=== PATIENT | male | born 1935 | race Caucasian/White ===

== ENCOUNTER 2019-06-11 09:39 | Inpatient (IN) | payer OTHER ==
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
--- NOTE | 2019-06-11 09:56 | PDOC ---
Attending Attestation - Resident Resident Name: Harsh Truong - ED Attending Attestation I have performed the following: I have examined & evaluated the patient, The case was reviewed & discussed with the resident, I agree w/resident's findings & plan, Exceptions are as noted - HPI HPI: 06/11/19 10:31 Mr Mccabe is an 84 yo M presenting to the ER with a complaint of feeling weak Pt reports that last night he had abdominal pain at approximately 1am He was unable to sleep and therefore went downstairs and walked around Symptoms lasted 2 hours and resolved No prior like this He did feel nauseous this morning and took Radha Cammal No longer nauseous Rectal temp 102.7 - Physicial Exam PE: 06/11/19 09:56 GENERAL: The patient is in no acute distress, pleasant, A&O x 3. ENT: Ears normal, nares patent, oropharynx clear without exudates. Moist mucous membranes. NECK: Normal range of motion, supple, no nuchal rigidity LUNGS: Breath sounds equal, clear to auscultation bilaterally. No wheezes, and no crackles. HEART:Regular rate and rhythm, normal S1 and S2 without murmur, rub or gallop. ABDOMEN: Soft, nontender, protruberant abdomen EXTREMITIES: Normal range of motion, no edema. NEUROLOGICAL: Cranial nerves II through XII grossly intact. Normal speech. No focal neurological deficits. SKIN: Warm, Dry, normal turgor, no rashes or lesions noted. 06/11/19 10:51 - Critical Care Time Total Critical Care Time: 60 Critical Care Statement: The care of this patient involved high complexity decision making to prevent further life threatening deterioration of the patient 's condition and/or to evaluate & treat vital organ system(s) failure or risk of failure. - Medical Decision Making 06/11/19 10:52 84 yo M presenting with weakness found to have a temp of 102.7 Unclear the source of his fever Will do: Labs EKG CT IVF Tylenol Re Assess Admit 06/11/19 10:58 CXR - No acute pathology seen 06/11/19 11:05 Laboratory Tests 06/11/19 06/11/19 06/11/19 10:30 10:30 10:30 WBC 7.3 Hgb 14.3 Hct 40.9 D Plt Count 152 Neutrophils % 84.9 H D PTT (Actin FS) 28.8 VBG pH 7.40 POC VBG pCO2 45.8 POC VBG pO2 38.3 VBG HCO3 27.4 06/11/19 11:40 EKG - SR rate of 85 bpm, axis nml, no st elevation or depression, limb lead reversal 06/11/19 11:47 Laboratory Tests 06/11/19 06/11/19 06/11/19 10:30 10:30 11:20 Sodium 140 Potassium 4.4 Chloride 104 Carbon Dioxide 30 BUN 16.7 Creatinine 1.1 Random Glucose 109 H Total Bilirubin 1.5 H AST 72 H ALT 78 H Alkaline Phosphatase 122 H Creatine Kinase 69 Troponin I Cancelled Urine Blood 1+ H Urine Nitrite Negative Urine Bilirubin Negative Ur Leukocyte Esterase Negative Urine WBC (Auto) 0 Urine RBC (Auto) 17 Slight transaminitis UA negative 06/11/19 13:50 CT demonstrates - overdistended gallbladder No acute cholecystitis Dilated CBD with small stones Mesenteric stranding diverticulosis no diverticulitis Will order RUQ U/S Will Admit Given Vancomycin and Zosyn Clinical Impression: choledocholithiasis, initial presentation
[2019-06-11] MEDS ORDERED: SODIUM CHLORIDE 1,000 ML IV STA (09:59)
[2019-06-11] MEDS ORDERED: ACETAMINOPHEN 1000 MG/100 ML VIAL (NON FORMULARY) IVPB ONE (09:59)
[2019-06-11] MEDS ORDERED: ONDANSETRON 4 MG/2 ML VIAL ONE (10:00)
[2019-06-11 10:46] LABS: VENOUS PC02 45.8 mmHg (41-51); VENOUS PH 7.4 (7.31-7.41); VENOUS PO2 38.3 mmHg (30-40)
[2019-06-11] MEDS ORDERED: PIPERACILLIN/TAZOB 4.5 GM 4.5 GM in DEXTROSE 5%-WATER 100 ML IVPB ONE (10:46)
[2019-06-11] MEDS ORDERED: VANCOMYCIN 1 GM in D5W (PRE-DOCKED) 1,000 MG/250 ML IVPB ONE (10:46)
[2019-06-11] MEDS ORDERED: ACETAMINOPHEN INJECTION 100 ML IVPB ONE ×2 (10:54→18:49)
[2019-06-11 10:57] LABS: BASO % 0.5 % (0-2.0); EOS % 0.2 % (0-4.5); HEMATOCRIT 40.9 % (35.4-49); HEMOGLOBIN 14.3 GM/dL (11.7-16.9); LYMPH % 7.4 % (8-40); MCH 33.7 pg (25.7-33.7); MEAN CELL VOLUME 96.3 fl (80-96); MEAN PLT VOLUME 7.8 fl (7.5-11.1); NEUT % 84.9 % (42.8-82.8); PLATELET COUNT 152 K/MM3 (134-434); RBC 4.25 M/mm3 (4.00-5.60); RDW 13.1 % (11.9-15.9); WHITE BLOOD COUNT 7.3 K/mm3 (4.0-10.0)
[2019-06-11 11:11] LABS: INR 1.03 (0.83-1.09); PROTHROMBIN TIME (PATIENT) 12.1 SEC (9.7-13.0)
[2019-06-11 11:13] LABS: ALBUMIN 3.8 g/dl (3.4-5.0); ANION GAP 6 MMOL/L (8-16); BLOOD UREA NITROGEN 16.7 mg/dL (7-18); CALCIUM 9.4 mg/dL (8.5-10.1); CHLORIDE 104 mmol/L (98-107); CO2 30 mmol/L (21-32); GLUCOSE,RANDOM 109 mg/dL (74-106); POTASSIUM 4.4 mmol/L (3.5-5.1); SODIUM 140 mmol/L (136-145)
[2019-06-11 11:14] LABS: ALK PHOS 122 U/L (45-117); CREATININE 1.1 mg/dL (0.55-1.3); SGOT/AST 72 U/L (15-37); SGPT/ALT 78 U/L (13-61); TOT PROT 7.5 g/dl (6.4-8.2)
[2019-06-11 11:16] LABS: BILIRUBIN,TOTAL 1.5 mg/dL (0.2-1)
[2019-06-11] MEDS ORDERED: PIPERACILLIN/TAZOB 4.5 GM 4.5 GM/100 ML BAG IVPB ONE (11:23)
[2019-06-11] MEDS ORDERED: VANCOMYCIN 1 GRAM (PRE-DOCKED) 1,000 MG/250 ML BAG IVPB ONE (11:24)
[2019-06-11 11:45] LABS: EPI CELLS 0.4 /HPF (0-5/HPF); HYALINE CASTS 0 /lpf (0-8); PH,URINE 7.5 (5.0-8.0); URINE APPEARANCE CLEAR; URINE BACTERIA 1.5 /hpf (NEGATIVE); URINE BILIRUBIN NEGATIVE (NEGATIVE); URINE COLOR YELLOW; URINE GLUCOSE (UA) NEGATIVE (NEGATIVE); URINE KETONE NEGATIVE (NEGATIVE); URINE LEUK ESTERASE NEGATIVE (NEGATIVE); URINE NITRITE NEGATIVE (NEGATIVE); URINE PROTEIN NEGATIVE (NEGATIVE); URINE RBC 17 /hpf (0-4); URINE WBC 0 /hpf (0-5)
[2019-06-11 12:05] LABS: LIPASE 198 U/L (73-393)
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
--- NOTE | 2019-06-11 17:41 | PN ---
Teaching Attending Note Name of Resident: Ramon Aceves ATTENDING PHYSICIAN STATEMENT I saw and evaluated the patient. I reviewed the resident's note and discussed the case with the resident. I agree with the resident's findings and plan as documented with exceptions below. SUBJECTIVE: 84 yom with PMHx of CAD s/p CABG, ?chronic stable angina with reportedly non concerning stress test 3 months ago, HTN, HLD, hypothyroidism, chronic low back pain comes with sudden onset of RUQ abdominal pain associated with rigors, nausea, prompting him to come to Ed. His pain resolved enroute to ED. no similar prior symptoms. reported rectal temp 102 in ED. Currently patient denies any complaints. OBJECTIVE: Vital Signs Period Temp Pulse Resp BP Sys/Quinn Pulse Ox Last 24 Hr 99.0 F-99.1 F 80-99 18-19 118-154/56-65 99-100 Intake & Output 06/08/19 06/09/19 06/10/19 06/11/19 23:59 23:59 23:59 23:59 Weight 185 lb GENERAL: Awake, alert, and fully oriented, in no acute distress. HEAD: Normal with no signs of trauma. EYES: Pupils equal, round and reactive to light, extraocular movements intact, sclera anicteric, conjunctiva clear. No lid lag. EARS, NOSE, THROAT: Ears normal, nares patent, oropharynx clear without exudates. Moist mucous membranes. NECK: Normal range of motion, supple, no JVD LUNGS: Breath sounds equal, clear to auscultation bilaterally. No wheezes, and no crackles. No accessory muscle use. HEART: Regular rate and rhythm, normal S1 and S2. ABDOMEN: Soft, obese, NT throughout, neg Goodman's sign, no voluntary or involuntary guarding or rigidity, pos bowel sounds MUSCULOSKELETAL: Normal range of motion at all joints. No bony deformities or tenderness. No CVA tenderness. UPPER EXTREMITIES: 2+ pulses, warm, well-perfused. No cyanosis. No clubbing. No peripheral edema. LOWER EXTREMITIES: 2+ pulses, warm, well-perfused. No calf tenderness. No peripheral edema. NEUROLOGICAL: AAOx3, facial, symmetry, moves shayy xtremities, Cranial nerves II -XII intact. Normal speech. gait not observed. PSYCHIATRIC: Cooperative. Good eye contact. Appropriate mood and affect. SKIN: Warm, dry, normal turgor, no rashes or lesions noted, normal capillary refill. Home Medications Medication Instructions Recorded Atorvastatin Ca [Lipitor] 80 mg PO HS 04/24/14 Ezetimibe [Zetia] 10 mg PO DAILY 04/24/14 Metoprolol Succinate [Toprol XL -] 25 mg PO DAILY 04/24/14 Aspirin [Ecotrin] 81 mg PO DAILY 07/03/16 Levothyroxine [Synthroid -] 88 mcg PO DAILY 07/03/16 Active Medications Dextrose/Sodium Chloride (D5-Ns -) 1,000 mls @ 75 mls/hr IV ASDIR MARTINA Sodium Chloride (Normal Saline -) 500 mls @ 500 mls/hr IV ASDIR STA Stop: 06/11/19 18:46 Metoprolol Succinate (Toprol Xl -) 25 mg PO DAILY MARTINA Morphine Sulfate (Morphine Injection -) 2 mg IVPUSH Q4H PRN PRN Reason: PAIN LEVEL 1-5 Laboratory Results - last 24 hr 06/11/19 06/11/19 06/11/19 10:30 10:30 10:30 WBC 7.3 RBC 4.25 Hgb 14.3 Hct 40.9 D MCV 96.3 H MCH 33.7 MCHC 35.0 RDW 13.1 Plt Count 152 MPV 7.8 D Absolute Neuts (auto) 6.2 Neutrophils % 84.9 H D Lymphocytes % 7.4 L D Monocytes % 7.0 Eosinophils % 0.2 D Basophils % 0.5 Nucleated RBC % 0 PT with INR INR PTT (Actin FS) 28.8 VBG pH POC VBG pCO2 POC VBG pO2 VBG HCO3 VBG O2 Sat (Rob) VBG Base Excess Sodium Potassium Chloride Carbon Dioxide Anion Gap BUN Creatinine Est GFR (CKD-EPI)AfAm Est GFR (CKD-EPI)NonAf Random Glucose Lactic Acid Calcium Total Bilirubin AST ALT Alkaline Phosphatase Creatine Kinase Troponin I Cancelled Total Protein Albumin Lipase Urine Color Urine Appearance Urine pH Ur Specific [place] Urine Protein Urine Glucose (UA) Urine Ketones Urine Blood Urine Nitrite Urine Bilirubin Urine Urobilinogen Ur Leukocyte Esterase Urine WBC (Auto) Urine RBC (Auto) Urine Casts (Auto) U Epithel Cells (Auto) Urine Bacteria (Auto) 06/11/19 06/11/19 06/11/19 10:30 10:30 10:30 WBC RBC Hgb Hct MCV MCH MCHC RDW Plt Count MPV Absolute Neuts (auto) Neutrophils % Lymphocytes % Monocytes % Eosinophils % Basophils % Nucleated RBC % PT with INR 12.10 INR 1.03 PTT (Actin FS) VBG pH POC VBG pCO2 POC VBG pO2 VBG HCO3 VBG O2 Sat (Rob) VBG Base Excess Sodium 140 Potassium 4.4 Chloride 104 Carbon Dioxide 30 Anion Gap 6 L BUN 16.7 Creatinine 1.1 Est GFR (CKD-EPI)AfAm 71.07 Est GFR (CKD-EPI)NonAf 61.32 Random Glucose 109 H Lactic Acid 1.4 Calcium 9.4 Total Bilirubin 1.5 H AST 72 H ALT 78 H Alkaline Phosphatase 122 H Creatine Kinase 69 Troponin I < 0.02 Total Protein 7.5 Albumin 3.8 Lipase 198 Urine Color Urine Appearance Urine pH Ur Specific [place] Urine Protein Urine Glucose (UA) Urine Ketones Urine Blood Urine Nitrite Urine Bilirubin Urine Urobilinogen Ur Leukocyte Esterase Urine WBC (Auto) Urine RBC (Auto) Urine Casts (Auto) U Epithel Cells (Auto) Urine Bacteria (Auto) 06/11/19 06/11/19 10:30 11:20 WBC RBC Hgb Hct MCV MCH MCHC RDW Plt Count MPV Absolute Neuts (auto) Neutrophils % Lymphocytes % Monocytes % Eosinophils % Basophils % Nucleated RBC % PT with INR INR PTT (Actin FS) VBG pH 7.40 POC VBG pCO2 45.8 POC VBG pO2 38.3 VBG HCO3 27.4 VBG O2 Sat (Rob) 67.3 L VBG Base Excess 2.4 H Sodium Potassium Chloride Carbon Dioxide Anion Gap BUN Creatinine Est GFR (CKD-EPI)AfAm Est GFR (CKD-EPI)NonAf Random Glucose Lactic Acid Calcium Total Bilirubin AST ALT Alkaline Phosphatase Creatine Kinase Troponin I Total Protein Albumin Lipase Urine Color Yellow Urine Appearance Clear Urine pH 7.5 D Ur Specific [place] 1.014 Urine Protein Negative Urine Glucose (UA) Negative Urine Ketones Negative Urine Blood 1+ H Urine Nitrite Negative Urine Bilirubin Negative Urine Urobilinogen 1.0 Ur Leukocyte Esterase Negative Urine WBC (Auto) 0 Urine RBC (Auto) 17 Urine Casts (Auto) 0 U Epithel Cells (Auto) 0.4 Urine Bacteria (Auto) 1.[address] A/P results reviewed EKG: NSR, no acute ST-T changes ASSESSMENT AND PLAN: 84 yom with PMHx of CAD s/p CABG, ?chronic stable angina with reportedly non concerning stress test 3 months ago, HTN, HLD, hypothyroidism, chronic low back pain admitted with acute cholangitis/choledocholithiasis/cholelithiasis. -Acute cholangitis with early sepsis -Choledocholithasis with obstruction -Cholelithiasis -Abnormal LFts from above -CAD s/p CABG/?chronic stable angina -HTN -HLD -Hypothyroidism -Chronic low back pain Plan: Zosyn/blood cultures. NPO, IVF, pain control. GI consulted, case discussed with Dr. Heath in ED, MRCP, anticipate ERCP. Close hemodynamic monitoring. hold ASA. No heparin for now. Hold statin. Metoprolol as hemodynamics tolerate. Continue ranexa/levothyroxine DVTPPX SCDs dispo pending clinical improvement. Plan discussed with patient and at bedside in detail, all questions answered. Total admit time spent 65 min.
[2019-06-11] MEDS ORDERED: SODIUM CHLORIDE 500 ML IV STA (17:47)
[2019-06-11] MEDS ORDERED: DEXTROSE 5%-LACTATED RINGERS 1,000 ML IV SCH (18:00)
[2019-06-11] MEDS ORDERED: DEXTROSE 5%-NORMAL SALINE 1,000 ML IV SCH (18:00)
[2019-06-11] MEDS ORDERED: PIPERACILLIN/TAZOB 3.375 GM 3.375 GM/50 ML BAG IVPB ONE ×2 (18:50→20:04)
[2019-06-11] MEDS: PIPERACILLIN/TAZOB 3.375 GM 3.375 GM in DEXTROSE 5%-WATER - 50 ML IVPB SCH (20:00)
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
[2019-06-11] MEDS: ACETAMINOPHEN 1000 MG/100 ML VIAL (NON FORMULARY) IVPB PRN (21:39)
[2019-06-11] MEDS: RANOLAZINE E.R. 500 MG TABLET (FP) PO SCH (23:58)
[2019-06-12] MEDS ORDERED: PIPERACILLIN/TAZOBACTAM 3.375 GM VIAL IVPB ONE ×2 (01:59→08:25)
[2019-06-12] MEDS ORDERED: DEXTROSE 5%-WATER - 50 ML IVPB ONE ×2 (01:59→08:25)
[2019-06-12] MEDS: PIPERACILLIN/TAZOB 3.375 GM 3.375 GM in DEXTROSE 5%-WATER - 50 ML IVPB SCH ×2 (02:13→10:01)
[2019-06-12] MEDS: LEVOTHYROXINE NA 88 MCG TABLET (FP) PO SCH (07:13)
--- NOTE | 2019-06-12 07:23 | PN ---
Physical Exam: SUBJECTIVE: Patient seen and examined no acute events over night , abdominal pain improved pt refused ERCP initially and his PPC was approhed by attending Dr Lyons who help convince pt about risk of not having the ERCP OBJECTIVE: Vital Signs Period Temp Pulse Resp BP Sys/Quinn Pulse Ox Last 24 Hr 98.1 F-102.5 F 69-102 18-20 108-160/56-74 98-100 GENERAL: Awake, alert, and fully oriented, in no acute distress. HEAD: Normal with no signs of trauma. LUNGS: Breath sounds equal, clear to auscultation bilaterally. No wheezes, and no crackles. No accessory muscle use. HEART: Regular rate and rhythm, normal S1 and S2 without murmur, rub or gallop. ABDOMEN: Soft, nontender, not distended, normoactive bowel sounds, no guarding, Goodman negative UPPER EXTREMITIES: 2+ pulses, warm, well-perfused. No cyanosis. No clubbing. No peripheral edema. LOWER EXTREMITIES: 2+ pulses, warm, well-perfused. No calf tenderness. No peripheral edema. surgery scar on right knee and left calf NEUROLOGICAL: no focal deficit Normal speech. gait not observed . PSYCHIATRIC: Cooperative. Good eye contact. Appropriate mood and affect. Laboratory Results - last 24 hr 06/11/19 06/11/19 06/11/19 10:30 10:30 10:30 WBC 7.3 RBC 4.25 Hgb 14.3 Hct 40.9 D MCV 96.3 H MCH 33.7 MCHC 35.0 RDW 13.1 Plt Count 152 MPV 7.8 D Absolute Neuts (auto) 6.2 Neutrophils % 84.9 H D Lymphocytes % 7.4 L D Monocytes % 7.0 Eosinophils % 0.2 D Basophils % 0.5 Nucleated RBC % 0 PT with INR INR PTT (Actin FS) 28.8 VBG pH POC VBG pCO2 POC VBG pO2 VBG HCO3 VBG O2 Sat (Rob) VBG Base Excess Sodium Potassium Chloride Carbon Dioxide Anion Gap BUN Creatinine Est GFR (CKD-EPI)AfAm Est GFR (CKD-EPI)NonAf Random Glucose Lactic Acid Calcium Total Bilirubin AST ALT Alkaline Phosphatase Creatine Kinase Troponin I Cancelled Total Protein Albumin Lipase Urine Color Urine Appearance Urine pH Ur Specific [place] Urine Protein Urine Glucose (UA) Urine Ketones Urine Blood Urine Nitrite Urine Bilirubin Urine Urobilinogen Ur Leukocyte Esterase Urine WBC (Auto) Urine RBC (Auto) Urine Casts (Auto) U Epithel Cells (Auto) Urine Bacteria (Auto) 06/11/19 06/11/19 06/11/19 10:30 10:30 10:30 WBC RBC Hgb Hct MCV MCH MCHC RDW Plt Count MPV Absolute Neuts (auto) Neutrophils % Lymphocytes % Monocytes % Eosinophils % Basophils % Nucleated RBC % PT with INR 12.10 INR 1.03 PTT (Actin FS) VBG pH POC VBG pCO2 POC VBG pO2 VBG HCO3 VBG O2 Sat (Rob) VBG Base Excess Sodium 140 Potassium 4.4 Chloride 104 Carbon Dioxide 30 Anion Gap 6 L BUN 16.7 Creatinine 1.1 Est GFR (CKD-EPI)AfAm 71.07 Est GFR (CKD-EPI)NonAf 61.32 Random Glucose 109 H Lactic Acid 1.4 Calcium 9.4 Total Bilirubin 1.5 H AST 72 H ALT 78 H Alkaline Phosphatase 122 H Creatine Kinase 69 Troponin I < 0.02 Total Protein 7.5 Albumin 3.8 Lipase 198 Urine Color Urine Appearance Urine pH Ur Specific [place] Urine Protein Urine Glucose (UA) Urine Ketones Urine Blood Urine Nitrite Urine Bilirubin Urine Urobilinogen Ur Leukocyte Esterase Urine WBC (Auto) Urine RBC (Auto) Urine Casts (Auto) U Epithel Cells (Auto) Urine Bacteria (Auto) 06/11/19 06/11/19 10:30 11:20 WBC RBC Hgb Hct MCV MCH MCHC RDW Plt Count MPV Absolute Neuts (auto) Neutrophils % Lymphocytes % Monocytes % Eosinophils % Basophils % Nucleated RBC % PT with INR INR PTT (Actin FS) VBG pH 7.40 POC VBG pCO2 45.8 POC VBG pO2 38.3 VBG HCO3 27.4 VBG O2 Sat (Rob) 67.3 L VBG Base Excess 2.4 H Sodium Potassium Chloride Carbon Dioxide Anion Gap BUN Creatinine Est GFR (CKD-EPI)AfAm Est GFR (CKD-EPI)NonAf Random Glucose Lactic Acid Calcium Total Bilirubin AST ALT Alkaline Phosphatase Creatine Kinase Troponin I Total Protein Albumin Lipase Urine Color Yellow Urine Appearance Clear Urine pH 7.5 D Ur Specific [place] 1.014 Urine Protein Negative Urine Glucose (UA) Negative Urine Ketones Negative Urine Blood 1+ H Urine Nitrite Negative Urine Bilirubin Negative Urine Urobilinogen 1.0 Ur Leukocyte Esterase Negative Urine WBC (Auto) 0 Urine RBC (Auto) 17 Urine Casts (Auto) 0 U Epithel Cells (Auto) 0.4 Urine Bacteria (Auto) 1.5 Active Medications Generic Name Dose Route Start Last Admin Trade Name Freq PRN Reason Stop Dose Admin Acetaminophen 1,000 mg 06/11/19 18:15 06/11/19 21:39 Ofirmev Injection - IVPB 1,000 mg Q6H PRN Administration FEVER Piperacillin Sod/Tazobactam 50 mls @ 100 mls/hr 06/11/19 18:00 Sod 3.375 gm/ Dextrose IVPB Q8H-IV MARTINA Protocol Dextrose/Lactated Ringer's 1,000 mls @ 83 mls/hr 06/11/19 18:00 06/11/19 20: 00 D5-Lr - IV 83 mls/hr ASDIR MARTINA Administration Piperacillin Sod/Tazobactam 50 mls @ 100 mls/hr 06/11/19 18:15 06/12/19 02:13 Sod 3.375 gm/ Dextrose IVPB 06/12/19 10:29 100 mls/hr Q8H-IV MARTINA Administration Levothyroxine Sodium 88 mcg 06/12/19 07:00 06/12/19 07:13 Synthroid - PO 88 mcg AM MARTINA Administration Metoprolol Succinate 25 mg 06/12/19 10:00 Toprol Xl - PO DAILY MARTINA Morphine Sulfate 2 mg 06/11/19 17:47 Morphine Sulfate IVPUSH Q4H PRN PAIN LEVEL 1-5 Ranolazine 500 mg 06/11/19 22:00 06/11/19 23:58 Ranexa - PO 500 mg BID MARTINA Administration CBC, BMP 06/12/19 07:50 06/12/19 07:50 ASSESSMENT/PLAN: 84 year old pleasant male with pmhx of HTN , HLD, Hypothyroidism , CAD S.P CABG , [facility] one day history of fever 102 , chills and abdominal pain was found to have CBD dilation and CBD stones admitted to M/S for further evaluation. # Biliary sepsis # Gram negative bacteremia # obstructive Choledocholilthisis # Cholelithisis without acute cholecystitits # acute ascending cholangitis as pt presented with fever 102 ,and chills , might deteriorate into sepsis * S.P ERCP with stone removal and stent placement , * clear liquids per GI * IV fluids RL by GI * Pain control Morphine * trend lab Bili direct and total , AST, ALT , INR , Type and screen , Amylase and lipase * ID cosulted cont Zosyn day 2 * cont on Zosyn , give n Vanc/zosyn in ED one dose * consult surgery for cholecystectomy after ERCP is done * zofran for nasuea , EKG NSR with No QTC prolongation # CAD S.P CABG Echo and cardiology consulted for pre op risk stratification and clearance # HTN # HLD # Hypothyroidism * hold ASA and statin , resume Metoprolol succ 25 daily, renexa and Synthroid 88 daily * #FEN * D5/NS swithc to RL by GI * Monitor lytes * NPO except meds #Proph scds , no chemoprophylaxis for now # dispo : M/S # code status : Full code Visit type - Emergency Visit Emergency Visit: Yes ED Registration Date: 06/11/19 Care time: The patient presented to the Emergency Department on the above date and was hospitalized for further evaluation of their emergent condition. - New Patient This patient is new to me today: No - Critical Care Critical Care patient: No ATTENDING PHYSICIAN STATEMENT I saw and evaluated the patient. I reviewed the resident's note and discussed the case with the resident. I agree with the resident's findings and plan as documented. SUBJECTIVE: OBJECTIVE: ASSESSMENT AND PLAN:
[2019-06-12 08:19] LABS: BASO % 0.5 % (0-2.0); HEMATOCRIT 34.1 % (35.4-49); HEMOGLOBIN 11.9 GM/dL (11.7-16.9); LYMPH % 16.4 % (8-40); MCH 33.7 pg (25.7-33.7); MCHC 34.9 g/dl (32.0-35.9); MEAN CELL VOLUME 96.3 fl (80-96); MEAN PLT VOLUME 7.7 fl (7.5-11.1); MONO % 10.1 % (3.8-10.2); PLATELET COUNT 128 K/MM3 (134-434); RBC 3.54 M/mm3 (4.00-5.60); RDW 12.7 % (11.9-15.9); WHITE BLOOD COUNT 6.3 K/mm3 (4.0-10.0)
[2019-06-12 08:46] LABS: BILIRUBIN,DIRECT 0.5 mg/dL (0.0-0.2)
[2019-06-12 08:50] LABS: INR 1.14 (0.83-1.09); PROTHROMBIN TIME (PATIENT) 13.5 SEC (9.7-13.0)
[2019-06-12 08:53] LABS: ACTIVATED PTT 28.9 SECONDS (25.2-36.5)
[2019-06-12 08:56] LABS: BILIRUBIN,TOTAL 1.5 mg/dL (0.2-1); CALCIUM 8.3 mg/dL (8.5-10.1); CREATININE 1.2 mg/dL (0.55-1.3); MAGNESIUM 1.9 mg/dL (1.8-2.4); PHOSPHOROUS 3.1 mg/dL (2.5-4.9)
--- NOTE | 2019-06-12 09:35 | CONSULT ---
- Consultation REQUESTING PROVIDER: CONSULT REQUEST: We have been asked to surgically evaluate this patient for ( specify). PCP:Wanda Kwan MD HISTORY OF PRESENT ILLNESS: TRACY who is an 84 y/o M who was awoken with knife like RUQ pain about 1AM; he then developed chills. No vomiting, diarrhea, or other GI or c/o.. The pain radiates into the back and is knifelike. He had a similar attack about 3 years ago which resolved spontanesously w/o w/u.. He has never been told of having gallstones and denies any h/o liver disease. He apparently had a fever to 102 at home. He denies dark urine/light stool's he has no other GI/ c/o. A w/u was initiated in the ED as is c/w cholelithiasis and possible choledocholithiasis; he was seen by GI and told he needed an ERCP and related procedures which he has declined; he stated to me in the presence of Dr. Kwan and Dr. Mi that he "wanted to ". PMHx: HLD/HTN/thyroid disease PSHx: CABG/ORIF RLE fx. Home Medications Medication Instructions Recorded Atorvastatin Ca [Lipitor] 80 mg PO HS 04/24/14 Ezetimibe [Zetia] 10 mg PO DAILY 04/24/14 Metoprolol Succinate [Toprol XL -] 25 mg PO DAILY 04/24/14 Aspirin [Ecotrin] 81 mg PO DAILY 07/03/16 Levothyroxine [Synthroid -] 88 mcg PO DAILY 07/03/16 Ranolazine [Ranexa -] 500 mg PO BID 06/11/19 Allergies Allergy/AdvReac Type Severity Reaction Status Date / Time No Known Allergies Allergy Verified 06/11/19 09:43 REVIEW OF SYSTEMS: declined to answer. PHYSICAL EXAM: GENERAL: Awake, alert, and fully oriented, in no acute distress. HEAD: Normal with no signs of trauma. EYES: sclera anicteric, conjunctiva clear. NECK: Normal ROM, supple without lymphadenopathy, JVD, or masses. ABDOMEN: Soft, RUQ tenderness, not distended, normoactive bowel sounds, weak RUQ and epigastric guarding, no rebound, no masses. No organomegaly. No hernias MUSCULOSKELETAL: Normal ROM at all joints. No bony deformities or tenderness. No CVA tenderness. UPPER EXTREMITIES: 2+ pulses, warm, well-perfused. No cyanosis. Cap refill <2 seconds. No peripheral edema. LOWER EXTREMITIES: 2+ pulses, warm, well-perfused. No calf tenderness. No peripheral edema. NEUROLOGICAL: Normal speech, gait not observed. PSYCH: Cooperative. Good eye contact. Appropriate mood and affect. SKIN: Warm, dry, normal turgor, no rashes or lesions noted. Vital Signs Temperature 98.4 F 06/12/19 06:00 Pulse Rate 70 06/12/19 06:00 Respiratory Rate 20 06/12/19 06:00 Blood Pressure 103/50 L 06/12/19 06:00 O2 Sat by Pulse Oximetry (%) 98 06/12/19 01:00 Lab Results WBC 6.3 K/mm3 (4.0-10.0) 06/12/19 07:50 RBC 3.54 M/mm3 (4.00-5.60) L 06/12/19 07:50 Hgb 11.9 GM/dL (11.7-16.9) 06/12/19 07:50 Hct 34.1 % (35.4-49) L D 06/12/19 07:50 MCV 96.3 fl (80-96) H 06/12/19 07:50 MCHC 34.9 g/dl (32.0-35.9) 06/12/19 07:50 RDW 12.7 % (11.9-15.9) 06/12/19 07:50 Plt Count 128 K/MM3 (134-434) L 06/12/19 07:50 Sodium 141 mmol/L (136-145) 06/12/19 07:50 Potassium 4.0 mmol/L (3.5-5.1) 06/12/19 07:50 Chloride 105 mmol/L (98-107) 06/12/19 07:50 Carbon Dioxide 30 mmol/L (21-32) 06/12/19 07:50 Anion Gap 7 MMOL/L (8-16) L 06/12/19 07:50 BUN 14.0 mg/dL (7-18) 06/12/19 07:50 Creatinine 1.2 mg/dL (0.55-1.3) 06/12/19 07:50 Random Glucose 111 mg/dL (74-106) H 06/12/19 07:50 Calcium 8.3 mg/dL (8.5-10.1) L 06/12/19 07:50 INR 1.14 (0.83-1.09) H 06/12/19 07:50 US/CT a/p reviewed/GI consult reviewed GN rods are growing in the blood. IMP: cholelithiasi; probable choledocholithiasi PLAN: NPO/IVF/IVAB's/ERCP and related procedures which the patient is currently refusing and eventual lap pinky possible open; will continue to f/u despite patients refusal of therapeutic intervention(s); the primary team will address his competence and speak w/his family. Ulises Chong MD FACS
[2019-06-12] MEDS: metoPROLOL SUCCINATE 25 MG TAB.SR.24H (FP) PO SCH (10:00)
[2019-06-12] MEDS: RANOLAZINE E.R. 500 MG TABLET (FP) PO SCH ×2 (10:00→21:07)
[2019-06-12] MEDS ORDERED: metoPROLOL SUCCINATE 25 MG TAB.SR.24H (FP) PO SCH (10:00)
--- NOTE | 2019-06-12 10:47 | PN ---
Progress Note (short form) - Note Progress Note: ID consult dictated imp/reccd 84 yo man admitted from home with RUQ pain yesterday with chills and nausea resolved on his way to the Ed febrile to 102 now with choledocholithiasis and gram negative bacteremia gram negative bacteremia secondary to choledocholithiasis- biliary sepsis for ERCP today would contnue zosyn CAD s/p CABG Problem List - Problems (1) Gram-negative bacteremia Code(s): R78.81 - BACTEREMIA (2) Cholangitis due to bile duct calculus with obstruction Code(s): K80.31 - CALCULUS OF BILE DUCT W CHOLANGITIS, UNSP, WITH OBSTRUCTION (3) CAD (coronary artery disease) Code(s): I25.10 - ATHSCL HEART DISEASE OF [place] CORONARY ARTERY W/O ANG PCTRS
--- NOTE | 2019-06-12 11:50 | EKG ---
Test Reason : Blood Pressure : / mmHG Vent. Rate : 085 BPM Atrial Rate : 085 BPM P-R Int : 146 ms QRS Dur : 080 ms QT Int : 364 ms P-R-T Axes : 158 186 120 degrees QTc Int : 433 ms SUSPECT ARM LEAD REVERSAL, INTERPRETATION ASSUMES NO REVERSAL NORMAL SINUS RHYTHM LATERAL INFARCT , AGE UNDETERMINED ABNORMAL ECG Confirmed by TRE SPRAGUE MD ([id number]) on 06/12/2019 11:50:19 AM Referred By: Confirmed By:TRE SPRAGUE MD
--- NOTE | 2019-06-12 12:12 | PN ---
Progress Note (short form) - Note Progress Note: Attending Surgeon If ERCP and related procedures done today post procedure clinical course stable will schedule for lap pinky . Ulises Chong MD FACS.
--- NOTE | 2019-06-12 12:26 | PN ---
Teaching Attending Note Name of Resident: Ramon Aceves ATTENDING PHYSICIAN STATEMENT I saw and evaluated the patient. I reviewed the resident's note and discussed the case with the resident. I agree with the resident's findings and plan as documented with exceptions below. SUBJECTIVE: patient seen and examined, Feels better, initially declined any intervention on my visit. OBJECTIVE: Vital Signs Period Temp Pulse Resp BP Sys/Quinn Pulse Ox Last 24 Hr 98.1 F-102.1 F 69-102 18-20 103-160/50-72 94-99 Intake & Output 06/09/19 06/10/19 06/11/19 06/12/19 23:59 23:59 23:59 23:59 Intake Total 0 664 Balance 0 664 Weight 198 lb 6.4 oz General: lying in bed in no acute distress CVS:S1s2 regular Chest: CTAB, no rales or wheezing Abdomen: soft, obese, NT currently, no voluntary or involuntary guarding or rigidity, pos bowel sounds Extremities: no edema Home Medications Medication Instructions Recorded Atorvastatin Ca [Lipitor] 80 mg PO HS 04/24/14 Ezetimibe [Zetia] 10 mg PO DAILY 04/24/14 Metoprolol Succinate [Toprol XL -] 25 mg PO DAILY 04/24/14 Aspirin [Ecotrin] 81 mg PO DAILY 07/03/16 Levothyroxine [Synthroid -] 88 mcg PO DAILY 07/03/16 Ranolazine [Ranexa -] 500 mg PO BID 06/11/19 Active Medications Acetaminophen (Ofirmev Injection -) 1,000 mg IVPB Q6H PRN PRN Reason: FEVER Last Admin: 06/11/19 21:39 Dose: 1,000 mg Dextrose/Lactated Ringer's (D5-Lr -) 1,000 mls @ 83 mls/hr IV ASDIR MARTINA Last Admin: 06/11/19 20:00 Dose: 83 mls/hr Piperacillin Sod/Tazobactam (Sod 4.5 gm/ Dextrose) 100 mls @ 200 mls/hr IVPB Q8H-IV MARTINA; Protocol Levothyroxine Sodium (Synthroid -) 88 mcg PO AM MARTINA Last Admin: 06/12/19 07:13 Dose: 88 mcg Metoprolol Succinate (Toprol Xl -) 25 mg PO DAILY MARTINA Last Admin: 06/12/19 10:00 Dose: 25 mg Morphine Sulfate (Morphine Sulfate) 2 mg IVPUSH Q4H PRN PRN Reason: PAIN LEVEL 1-5 Ranolazine (Ranexa -) 500 mg PO BID MARTINA Last Admin: 06/12/19 10:00 Dose: 500 mg Laboratory Results - last 24 hr 06/12/19 06/12/19 06/12/19 07:50 07:50 07:50 WBC 6.3 RBC 3.54 L Hgb 11.9 Hct 34.1 L D MCV 96.3 H MCH 33.7 MCHC 34.9 RDW 12.7 Plt Count 128 L MPV 7.7 Absolute Neuts (auto) 4.5 Neutrophils % 71.0 Lymphocytes % 16.4 D Monocytes % 10.1 Eosinophils % 2.0 D Basophils % 0.5 Nucleated RBC % 0 PT with INR 13.50 H INR 1.14 H PTT (Actin FS) 28.9 Sodium 141 Potassium 4.0 Chloride 105 Carbon Dioxide 30 Anion Gap 7 L BUN 14.0 Creatinine 1.2 Est GFR (CKD-EPI)AfAm 63.97 Est GFR (CKD-EPI)NonAf 55.20 Random Glucose 111 H Calcium 8.3 L Phosphorus 3.1 Magnesium 1.9 Total Bilirubin 1.5 H Direct Bilirubin AST 30 ALT 45 Alkaline Phosphatase 79 Troponin I 0.02 C-Reactive Protein Total Protein 6.0 L Albumin 3.0 L Total Amylase 44 Lipase 155 06/12/19 07:50 WBC RBC Hgb Hct MCV MCH MCHC RDW Plt Count MPV Absolute Neuts (auto) Neutrophils % Lymphocytes % Monocytes % Eosinophils % Basophils % Nucleated RBC % PT with INR INR PTT (Actin FS) Sodium Potassium Chloride Carbon Dioxide Anion Gap BUN Creatinine Est GFR (CKD-EPI)AfAm Est GFR (CKD-EPI)NonAf Random Glucose Calcium Phosphorus Magnesium Total Bilirubin Direct Bilirubin 0.5 H AST ALT Alkaline Phosphatase Troponin I C-Reactive Protein 8.6 H Total Protein Albumin Total Amylase Lipase Microbiology 06/11/19 10:30 Blood - Peripheral Venous Blood Culture - Preliminary NO GROWTH OBTAINED AFTER 24 HOURS, INCUBATION TO CONTINUE FOR 4 DAYS. 06/11/19 11:20 Urine - Urine Clean Catch Urine Culture - Final NO GROWTH OBTAINED 06/11/19 10:30 Blood - Peripheral Venous Blood Culture - Preliminary Lactose Fermenting Neg Bacilli MRCP results reviewed ASSESSMENT AND PLAN: 84 yom with PMHx of CAD s/p CABG, ?chronic stable angina with reportedly non concerning stress test 3 months ago, HTN, HLD, hypothyroidism, chronic low back pain admitted with acute cholangitis/choledocholithiasis/cholelithiasis. -Acute cholangitis with biliary sepsis and Gm neg bacteremia -Choledocholithasis with obstruction -Cholelithiasis -Abnormal LFts from above -CAD s/p CABG/?chronic stable angina -HTN -HLD -Hypothyroidism -Chronic low back pain Plan: Initially declined ERCP. Risks including sepsis, and explained. Extensive discussion held with patient, and PCP Dr. Harman. Patient agreable to intervention as indicated. Discussed with Dr Heath, for ERCP today. Surgery input noted. eventual CCY once active obstructive concerns resolved. Cardiology input for pre-op risk stratification/optimization. ID input noted. Zosyn day 2, follow up blood cx. NPO, IVF, pain control. hold ASA. No heparin for now. Hold statin. Metoprolol as hemodynamics tolerate. Continue ranexa/levothyroxine DVTPPX SCDs dispo pending clinical improvement. Discussed with nursing, patient, , PCP, surgery, ID, GI Extensive discussion held and total time spent in patient visit, discussion and co-ordination of care 42 min.
[2019-06-12] MEDS ORDERED: ONDANSETRON 4 MG/2 ML VIAL ONE (13:06)
[2019-06-12] MEDS ORDERED: MIDAZOLAM HCL 2 MG/2 ML SINGLE DOSE VIAL ONE (13:11)
[2019-06-12] MEDS ORDERED: GLUCAGON 1 MG KIT IVPUSH ONE (14:14)
[2019-06-12] MEDS ORDERED: IOHEXOL 300 MG/ML INFUS..BTL IJ ONE (14:30)
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
[2019-06-12 15:23] VITALS: BMI 32.9
[2019-06-12] MEDS ORDERED: LACTATED RINGERS SOLUTION 1,000 ML/1,000 ML INFUS.BAG IV SCH ×2 (15:30→21:30)
--- NOTE | 2019-06-12 15:30 | PN ---
Progress Note (short form) - Note Progress Note: GI Procedure NOte: Please see ERCP report. Phan had multiple very large stones which were extracted but caused the sphincterotomy to swell and close so a 7FR x 7cm double pigtail stent was inserted to keep the duct open and draining. Pus was found admixed with bile confirming cholangitis. I discussed the findings with Phan and his and inform then of the need to followup in my office to arrange a repeat ERCP to remove the stent and possible residual stone fragments. Dr. Weaver zee be covering this weekend. Problem List - Problems (1) Cholangitis due to bile duct calculus with obstruction Code(s): K80.31 - CALCULUS OF BILE DUCT W CHOLANGITIS, UNSP, WITH OBSTRUCTION (2) Cholelithiasis Code(s): K80.20 - CALCULUS OF GALLBLADDER W/O CHOLECYSTITIS W/O OBSTRUCTION (3) CAD (coronary artery disease) Code(s): I25.10 - ATHSCL HEART DISEASE OF [place] CORONARY ARTERY W/O ANG PCTRS (4) HTN (hypertension) Code(s): I10 - ESSENTIAL (PRIMARY) HYPERTENSION (5) Hx of CABG Code(s): Z95.1 - PRESENCE OF AORTOCORONARY BYPASS GRAFT (6) Hyperlipidemia Code(s): E78.5 - HYPERLIPIDEMIA, UNSPECIFIED (7) Hypothyroid Code(s): E03.9 - HYPOTHYROIDISM, UNSPECIFIED (8) SIRS (systemic inflammatory response syndrome) Code(s): R65.10 - SIRS OF NON-INFECTIOUS ORIGIN W/O ACUTE ORGAN DYSFUNCTION
[2019-06-12] MEDS ORDERED: PIPERACILLIN/TAZOBACTAM 4.5 GM VIAL IVPB ONE (17:10)
[2019-06-12] MEDS ORDERED: DEXTROSE 5%-WATER 100 ML IVPB ONE (17:10)
[2019-06-12] MEDS: PIPERACILLIN/TAZOB 4.5 GM 4.5 GM in DEXTROSE 5%-WATER 100 ML IVPB SCH (17:42)
[2019-06-12] MEDS ORDERED: GLUCAGON 1 MG KIT ONE (17:45)
[2019-06-13] MEDS: MORPHINE SULFATE 2 MG/ML VIAL IVPUSH PRN (00:04)
[2019-06-13] MEDS ORDERED: PIPERACILLIN/TAZOBACTAM 4.5 GM VIAL IVPB ONE ×3 (02:35→16:52)
[2019-06-13] MEDS ORDERED: DEXTROSE 5%-WATER 100 ML IVPB ONE ×3 (02:35→16:52)
[2019-06-13] MEDS: PIPERACILLIN/TAZOB 4.5 GM 4.5 GM in DEXTROSE 5%-WATER 100 ML IVPB SCH ×3 (02:51→17:21)
[2019-06-13] MEDS ORDERED: LACTATED RINGERS SOLUTION 1,000 ML/1,000 ML INFUS.BAG IV SCH ×3 (03:15→15:15)
[2019-06-13] MEDS: LEVOTHYROXINE NA 88 MCG TABLET (FP) PO SCH (06:44)
--- NOTE | 2019-06-13 07:50 | PN.GI ---
GI Progress Note Subjective: NO NEW COMPLAINTS / DENIES ABDOMINAL PAIN / NAUSEA/ VOMITING / FEVER - Objective Vital Signs: Vital Signs Temperature 98.7 F 06/13/19 05:46 Pulse Rate 57 L 06/13/19 05:46 Respiratory Rate 18 06/13/19 05:46 Blood Pressure 124/53 L 06/13/19 05:46 O2 Sat by Pulse Oximetry (%) 98 06/12/19 21:00 Constitutional: Well Nourished, No Distress, Calm Eyes: Yes: WNL HENT: Yes: WNL Neck: Yes: WNL Cardiovascular: Yes: WNL, Regular Rate and Rhythm Respiratory: Yes: WNL, Regular, CTA Bilaterally Gastrointestinal Inspection: Yes: WNL ...Auscultate: Yes: Normoactive Bowel Sounds Extremities: Yes: WNL Edema: No Labs: CBC, BMP 06/12/19 07:50 06/12/19 07:50 INR, PTT INR 1.14 (0.83-1.09) H 06/12/19 07:50 Problem List - Problems (1) Cholangitis due to bile duct calculus with obstruction Assessment/Plan: S/P ERCP WITH STONE EXTRACTION AND BILIARY STENT PLACEMENT FOR CHOLANGITIS F/U REPEAT CULTURES C/W ABX TREND LFT QD ADVANCED TO FAT CONTROLLED DIET FOR DINNER Code(s): K80.31 - CALCULUS OF BILE DUCT W CHOLANGITIS, UNSP, WITH OBSTRUCTION (2) Gram-negative bacteremia Code(s): R78.81 - BACTEREMIA
[2019-06-13 08:16] LABS: BASO % 0.5 % (0-2.0); EOS % 1.3 % (0-4.5); HEMATOCRIT 33.6 % (35.4-49); HEMOGLOBIN 12.1 GM/dL (11.7-16.9); LYMPH % 21.7 % (8-40); MCH 34.1 pg (25.7-33.7); MEAN CELL VOLUME 94.8 fl (80-96); MONO % 10.1 % (3.8-10.2); NEUT % 66.4 % (42.8-82.8); PLATELET COUNT 122 K/MM3 (134-434); RBC 3.55 M/mm3 (4.00-5.60); RDW 12.8 % (11.9-15.9); WHITE BLOOD COUNT 5.6 K/mm3 (4.0-10.0)
[2019-06-13 08:40] LABS: BILIRUBIN,DIRECT 0.5 mg/dL (0.0-0.2); BILIRUBIN,TOTAL 1.4 mg/dL (0.2-1); BLOOD UREA NITROGEN 12.2 mg/dL (7-18); CALCIUM 8.3 mg/dL (8.5-10.1); CREATININE 0.9 mg/dL (0.55-1.3); MAGNESIUM 1.9 mg/dL (1.8-2.4); PHOSPHOROUS 3.4 mg/dL (2.5-4.9); POTASSIUM 3.9 mmol/L (3.5-5.1); TOT PROT 5.9 g/dl (6.4-8.2)
[2019-06-13] MEDS: metoPROLOL SUCCINATE 25 MG TAB.SR.24H (FP) PO SCH (09:41)
[2019-06-13] MEDS: RANOLAZINE E.R. 500 MG TABLET (FP) PO SCH ×2 (09:41→21:11)
--- NOTE | 2019-06-13 13:11 | PN ---
Physical Exam: SUBJECTIVE: Patient seen and examined, abdominal pain improved. no nausea, vomiting, fevers, chills or concerns otherwise. OBJECTIVE: Vital Signs Period Temp Pulse Resp BP Sys/Quinn Pulse Ox Last 24 Hr 98.4 F-100 F 57-71 14-20 122-151/52-65 98-100 Intake & Output 06/10/19 06/11/19 06/12/19 06/13/19 23:59 23:59 23:59 23:59 Intake Total 0 1664 200 Output Total 400 Balance 0 1664 -200 Weight 198 lb 6.4 oz 198 lb GENERAL: sitting in bed in no acute distress Neck: soft, supple CVS:S1S2 regular Chest: CTAB, no rales or wheezing Abdomen:soft, obese, mild RUQ/epigastric tenderness, no voluntary or involuntary guarding or rigidity, pos bowel sounds Extremities: no edema Psych: co-operative Laboratory Results - last 24 hr 06/13/19 06/13/19 06/13/19 07:10 07:10 07:10 WBC 5.6 RBC 3.55 L Hgb 12.1 Hct 33.6 L MCV 94.8 MCH 34.1 H MCHC 36.0 H RDW 12.8 Plt Count 122 L MPV 8.0 Absolute Neuts (auto) 3.7 Neutrophils % 66.4 Lymphocytes % 21.7 D Monocytes % 10.1 Eosinophils % 1.3 Basophils % 0.5 Nucleated RBC % 0 Sodium 139 Potassium 3.9 Chloride 104 Carbon Dioxide 29 Anion Gap 7 L BUN 12.2 Creatinine 0.9 Est GFR (CKD-EPI)AfAm 90.58 Est GFR (CKD-EPI)NonAf 78.15 Random Glucose 94 Calcium 8.3 L Phosphorus 3.4 Magnesium 1.9 Total Bilirubin 1.4 H Direct Bilirubin 0.5 H AST 46 H ALT 65 H Alkaline Phosphatase 96 C-Reactive Protein 10.1 H Total Protein 5.9 L Albumin 3.0 L Active Medications Generic Name Dose Route Start Last Admin Trade Name Freq PRN Reason Stop Dose Admin Acetaminophen 1,000 mg 06/11/19 18:15 06/11/19 21:39 Ofirmev Injection - IVPB 1,000 mg Q6H PRN Administration FEVER Piperacillin Sod/Tazobactam 100 mls @ 200 mls/hr 06/12/19 18:00 06/13/19 09: 41 Sod 4.5 gm/ Dextrose IVPB 200 mls/hr Q8H-IV MARTINA Administration Protocol Lactated Ringer's 1,000 ml in 1,000 mls @ 75 mls/hr 06/13/19 09:15 Lactated Ringers Solution IV 06/13/19 15:15 ASDIR MARTINA Lactated Ringer's 1,000 ml in 1,000 mls @ 50 mls/hr 06/13/19 15:15 Lactated Ringers Solution IV 06/13/19 21:15 ASDIR MARTINA Levothyroxine Sodium 88 mcg 06/12/19 07:00 06/13/19 06:44 Synthroid - PO 88 mcg AM MARTINA Administration Metoprolol Succinate 25 mg 06/12/19 10:00 06/13/19 09:41 Toprol Xl - PO 25 mg DAILY MARTINA Administration Morphine Sulfate 2 mg 06/11/19 17:47 06/13/19 00:04 Morphine Sulfate IVPUSH 2 mg Q4H PRN Administration PAIN LEVEL 1-5 Ranolazine 500 mg 06/11/19 22:00 06/13/19 09:41 Ranexa - PO 500 mg BID MARTINA Administration Microbiology 06/11/19 10:30 Blood - Peripheral Venous Blood Culture - Preliminary NO GROWTH OBTAINED AFTER 48 HOURS, INCUBATION TO CONTINUE FOR 3 DAYS. 06/11/19 10:30 Blood - Peripheral Venous Blood Culture - Final Klebsiella Pneumoniae 06/11/19 11:20 Urine - Urine Clean Catch Urine Culture - Final NO GROWTH OBTAINED ASSESSMENT/PLAN: 84 yom with PMHx of CAD s/p CABG, ?chronic stable angina with reportedly non concerning stress test 3 months ago, HTN, HLD, hypothyroidism, chronic low back pain admitted with acute cholangitis/choledocholithiasis/cholelithiasis. -Acute cholangitis with biliary sepsis and Proteus bacteremia -Choledocholithasis with obstruction s/p stone removal/stent placement -Cholelithiasis -Abnormal LFts from above -CAD s/p CABG/?chronic stable angina -HTN -HLD -Hypothyroidism -Chronic low back pain Plan: ERCP results noted. Plan for repeat ERCP outpatient for stent placement and possible residual stone fragment removal outpatient. LFTs improved. PO per GI. IVF, pain control. Hold ASA. No heparin for now. Hold statin. Metoprolol as hemodynamics tolerate. Continue ranexa/levothyroxine DVTPPX SCDs dispo pending/GI surgery plans and clinical improvement. Discussed with patient and nursing in detail, all questions answered. Visit type - Emergency Visit Emergency Visit: Yes ED Registration Date: 06/11/19 Care time: The patient presented to the Emergency Department on the above date and was hospitalized for further evaluation of their emergent condition. - New Patient This patient is new to me today: No - Critical Care Critical Care patient: No - Discharge Referral Referred to [facility] Med [facility].: No
--- NOTE | 2019-06-13 18:53 | PN ---
Progress Note, Physician Chief Complaint: ID Coverage - Dr. Rob Fever History of Present Illness: Mr. Mccabe is a pleasant 84 yo man admitted from home with RUQ pain associated with fever, chills and nausea. Hospital course significant for Dx GNR bacteremia and choledocholithiasis. He had ERCP/Sphincterotomy which revealed a large stone and also had a stent placed. Procedure note stated (+) pus. BC (+) Klebsiella - sensitivities noted. - Current Medication List Current Medications: Active Medications Acetaminophen (Ofirmev Injection -) 1,000 mg IVPB Q6H PRN PRN Reason: FEVER Last Admin: 06/11/19 21:39 Dose: 1,000 mg Piperacillin Sod/Tazobactam (Sod 4.5 gm/ Dextrose) 100 mls @ 200 mls/hr IVPB Q8H-IV MARTINA; Protocol Last Admin: 06/13/19 17:21 Dose: 200 mls/hr Lactated Ringer's (Lactated Ringers Solution) 1,000 ml in 1,000 mls @ 50 mls/ hr IV ASDIR MARTINA Stop: 06/13/19 21:15 Last Admin: 06/13/19 17:20 Dose: 50 mls/hr Levothyroxine Sodium (Synthroid -) 88 mcg PO AM [facility] Last Admin: 06/13/19 06:44 Dose: 88 mcg Metoprolol Succinate (Toprol Xl -) 25 mg PO DAILY [facility] Last Admin: 06/13/19 09:41 Dose: 25 mg Morphine Sulfate (Morphine Sulfate) 2 mg IVPUSH Q4H PRN PRN Reason: PAIN LEVEL 1-5 Last Admin: 06/13/19 00:04 Dose: 2 mg Ranolazine (Ranexa -) 500 mg PO BID [facility] Last Admin: 06/13/19 09:41 Dose: 500 mg - Objective Vital Signs: Vital Signs Temperature 99 F 06/13/19 18:00 Pulse Rate 68 06/13/19 18:00 Respiratory Rate 18 06/13/19 18:00 Blood Pressure 125/61 06/13/19 18:00 O2 Sat by Pulse Oximetry (%) 100 06/13/19 09:40 Constitutional: Yes: Well Nourished, No Distress Cardiovascular: Yes: Regular Rate and Rhythm Respiratory: Yes: CTA Bilaterally Gastrointestinal: Yes: Normal Bowel Sounds, Soft. No: Tenderness Labs: CBC, BMP 08/17/19 07:10 06/13/19 07:10 INR, PTT INR 1.14 (0.83-1.09) H 06/12/19 07:50 Problem List - Problems (1) Cholangitis due to bile duct calculus with obstruction Code(s): K80.31 - CALCULUS OF BILE DUCT W CHOLANGITIS, UNSP, WITH OBSTRUCTION (2) Cholelithiasis Code(s): K80.20 - CALCULUS OF GALLBLADDER W/O CHOLECYSTITIS W/O OBSTRUCTION Qualifiers: Cholelithiasis location: gallbladder and bile duct Cholecystitis presence: without cholecystitis Biliary obstruction: with biliary obstruction Qualified Code(s): K80.71 - Calculus of gallbladder and bile duct without cholecystitis with obstruction (3) Gram-negative bacteremia Code(s): R78.81 - BACTEREMIA (4) Sepsis Code(s): A41.9 - SEPSIS, UNSPECIFIED ORGANISM Qualifiers: Sepsis type: sepsis due to unspecified organism Sepsis acute organ dysfunction status: unspecified Qualified Code(s): A41.9 - Sepsis, unspecified organism Assessment/Plan Pt with fever, cholangitis, choledocholithiasis, Klebsiella bacteremia Continue Zosyn as dosed Rx total 7-10 days Repeat BC in AM.
[2019-06-14] MEDS ORDERED: PIPERACILLIN/TAZOBACTAM 4.5 GM VIAL IVPB ONE ×3 (00:05→17:31)
[2019-06-14] MEDS ORDERED: DEXTROSE 5%-WATER 100 ML IVPB ONE ×3 (00:06→17:31)
[2019-06-14] MEDS: PIPERACILLIN/TAZOB 4.5 GM 4.5 GM in DEXTROSE 5%-WATER 100 ML IVPB SCH ×3 (01:22→17:50)
--- NOTE | 2019-06-14 06:14 | PN ---
Progress Note, Physician Chief Complaint: s/p ercp under general anesthesia History of Present Illness: post op day one - Current Medication List Current Medications: Active Medications Acetaminophen (Ofirmev Injection -) 1,000 mg IVPB Q6H PRN PRN Reason: FEVER Last Admin: 06/11/19 21:39 Dose: 1,000 mg Piperacillin Sod/Tazobactam (Sod 4.5 gm/ Dextrose) 100 mls @ 200 mls/hr IVPB Q8H-IV MARTINA; Protocol Last Admin: 06/14/19 01:22 Dose: 200 mls/hr Levothyroxine Sodium (Synthroid -) 88 mcg PO AM MARTINA Last Admin: 06/13/19 06:44 Dose: 88 mcg Metoprolol Succinate (Toprol Xl -) 25 mg PO DAILY [facility] Last Admin: 06/13/19 09:41 Dose: 25 mg Morphine Sulfate (Morphine Sulfate) 2 mg IVPUSH Q4H PRN PRN Reason: PAIN LEVEL 1-5 Last Admin: 06/13/19 00:04 Dose: 2 mg Ranolazine (Ranexa -) 500 mg PO BID MARTINA Last Admin: 06/13/19 21:11 Dose: 500 mg - Objective Vital Signs: Vital Signs Temperature 99.3 F 06/14/19 02:00 Pulse Rate 73 06/14/19 02:00 Respiratory Rate 18 06/14/19 02:00 Blood Pressure 138/59 L 06/14/19 02:00 O2 Sat by Pulse Oximetry (%) 93 L 06/13/19 21:00 Constitutional: Yes: Well Nourished Cardiovascular: Yes: WNL Respiratory: Yes: WNL Gastrointestinal: Yes: WNL Labs: CBC, BMP 06/13/19 07:10 06/13/19 07:10 INR, PTT INR 1.14 (0.83-1.09) H 06/12/19 07:50 Assessment/Plan No adverse anesthetic events, dept of anesthesia will sign off care at this time.
[2019-06-14] MEDS: LEVOTHYROXINE NA 88 MCG TABLET (FP) PO SCH (06:24)
[2019-06-14] MEDS ORDERED: ACETAMINOPHEN 325 MG TABLET (FP) ONE (06:37)
[2019-06-14 08:00] LABS: BASO % 0.4 % (0-2.0); EOS % 2.2 % (0-4.5); HEMATOCRIT 35.2 % (35.4-49); HEMOGLOBIN 12.6 GM/dL (11.7-16.9); LYMPH % 18.5 % (8-40); MCH 34.1 pg (25.7-33.7); MCHC 35.9 g/dl (32.0-35.9); MEAN CELL VOLUME 95.2 fl (80-96); MEAN PLT VOLUME 7.9 fl (7.5-11.1); MONO % 9.3 % (3.8-10.2); NEUT % 69.6 % (42.8-82.8); PLATELET COUNT 144 K/MM3 (134-434); RDW 12.7 % (11.9-15.9); WHITE BLOOD COUNT 6.5 K/mm3 (4.0-10.0)
[2019-06-14] MEDS: PIPERACILLIN/TAZOB 3.375 GM 3.375 GM in DEXTROSE 5%-WATER - 50 ML IVPB SCH ×2 (08:15→08:32)
--- NOTE | 2019-06-14 08:21 | PN.GI ---
GI Progress Note Subjective: no complaints - feeling well today - Objective Vital Signs: Vital Signs Temperature 99.0 F 06/14/19 06:00 Pulse Rate 69 06/14/19 06:00 Respiratory Rate 20 06/14/19 06:00 Blood Pressure 148/66 06/14/19 06:00 O2 Sat by Pulse Oximetry (%) 93 L 06/13/19 21:00 Constitutional: Well Nourished, No Distress, Calm Eyes: Yes: WNL HENT: Yes: WNL Neck: Yes: WNL Cardiovascular: Yes: WNL Respiratory: Yes: WNL Gastrointestinal Inspection: Yes: WNL ...Auscultate: Yes: Normoactive Bowel Sounds Musculoskeletal: Yes: WNL Extremities: Yes: WNL Edema: No Labs: INR, PTT INR 1.14 (0.83-1.09) H 06/12/19 07:50 Problem List - Problems (1) Cholangitis due to bile duct calculus with obstruction Assessment/Plan: S/P ERCP WITH STONE EXTRACTION AND BILIARY STENT PLACEMENT FOR CHOLANGITIS F/U REPEAT CULTURES C/W ABX TREND LFT QD FAT CONTROLLED DIET LAP ZENA PER SURGERY Code(s): K80.31 - CALCULUS OF BILE DUCT W CHOLANGITIS, UNSP, WITH OBSTRUCTION (2) Gram-negative bacteremia Code(s): R78.81 - BACTEREMIA
[2019-06-14 08:37] LABS: ALBUMIN 3.1 g/dl (3.4-5.0); BILIRUBIN,DIRECT 0.4 mg/dL (0.0-0.2); BILIRUBIN,TOTAL 1.3 mg/dL (0.2-1); BLOOD UREA NITROGEN 10.4 mg/dL (7-18); PHOSPHOROUS 2.2 mg/dL (2.5-4.9); TOT PROT 6.4 g/dl (6.4-8.2)
[2019-06-14] MEDS ORDERED: SODIUM PHOSPHATE - 20 MM in DEXTROSE 5%-WATER - 250 ML IVPB ONE (08:45)
[2019-06-14] MEDS ORDERED: SODIUM PHOSPHATE - 20 MM in DEXTROSE 5%-WATER - 500 ML IVPB ONE (08:46)
[2019-06-14] MEDS: RANOLAZINE E.R. 500 MG TABLET (FP) PO SCH ×2 (10:16→21:45)
[2019-06-14] MEDS: metoPROLOL SUCCINATE 25 MG TAB.SR.24H (FP) PO SCH (10:17)
--- NOTE | 2019-06-14 13:42 | PN ---
Progress Note (short form) - Note Progress Note: Attending Surgeon Patient seen in f/u; he has no c/o today and is tolerating a diet. AF VSS abdo-soft; flat and non tender WBC normal; LFT's and bili normalizing IMP: cholelithiasi; choledocholithiasis and resolving cholangitis s/p ERCP and related proedures PLAN: Have d/w the patient the need for lap pinky possible open for tomorrow h/ e he declines at the preset time; we discussed the r/b/t and alternatives to surgery and at this time he is most concerned about receiving general anesthesia again in such a short period of time and not the surgery per se ; I have explained to him the gallbladder is the source of the stones ad his subsequent bacteremia but he has myranda an informed choice at this time; will continue to f/u. Ulises Chong MD FACS
--- NOTE | 2019-06-14 14:51 | PN ---
Physical Exam: SUBJECTIVE: Patient seen and examined, no nausea, vomiting, abdominal pain. tolerating diet well. OBJECTIVE: Vital Signs Period Temp Pulse Resp BP Sys/Quinn Pulse Ox Last 24 Hr 98.9 F-99.3 F 66-73 17-20 122-148/57-69 93 Intake & Output 06/11/19 06/12/19 06/13/19 06/14/19 23:59 23:59 23:59 23:59 Intake Total 0 1664 825 800 Output Total 850 Balance 0 1664 -25 800 Weight 198 lb 6.4 oz 198 lb GENERAL: sitting in bed in no acute distress Neck: soft, supple CVS:S1S2 regular Chest: CTAB, no rales or wheezing Abdomen:soft, obese, NT, no voluntary or involuntary guarding or rigidity, pos bowel sounds Extremities: no edema Psych: co-operative Laboratory Results - last 24 hr 06/14/19 06/14/19 07:36 07:36 WBC 6.5 RBC 3.70 L Hgb 12.6 Hct 35.2 L MCV 95.2 MCH 34.1 H MCHC 35.9 RDW 12.7 Plt Count 144 MPV 7.9 Absolute Neuts (auto) 4.5 Neutrophils % 69.6 Lymphocytes % 18.5 Monocytes % 9.3 Eosinophils % 2.2 Basophils % 0.4 Nucleated RBC % 0 Sodium 141 Potassium 4.0 Chloride 106 Carbon Dioxide 29 Anion Gap 6 L BUN 10.4 Creatinine 1.0 Est GFR (CKD-EPI)AfAm 79.75 Est GFR (CKD-EPI)NonAf 68.81 Random Glucose 94 Calcium 9.0 Phosphorus 2.2 L Magnesium 2.0 Total Bilirubin 1.3 H Direct Bilirubin 0.4 H AST 27 ALT 46 Alkaline Phosphatase 88 Total Protein 6.4 Albumin 3.1 L Active Medications Generic Name Dose Route Start Last Admin Trade Name Freq PRN Reason Stop Dose Admin Acetaminophen 1,000 mg 06/11/19 18:15 06/11/19 21:39 Ofirmev Injection - IVPB 1,000 mg Q6H PRN Administration FEVER Piperacillin Sod/Tazobactam 100 mls @ 200 mls/hr 06/12/19 18:00 06/14/19 10: 14 Sod 4.5 gm/ Dextrose IVPB 200 mls/hr Q8H-IV MARTINA Administration Protocol Sodium Phosphate 20 mm/ 506.6667 mls @ 63.33 mls/hr 06/14/19 08:46 06/14/19 10:00 Dextrose IVPB 06/14/19 16:45 63.33 mls/hr ONCE ONE Administration 20 MM/8 HR Dextrose/Sodium Chloride 1,000 mls @ 50 mls/hr 06/14/19 14:45 D5-Ns - IV ASDIR MARTINA Levothyroxine Sodium 88 mcg 06/12/19 07:00 06/14/19 06:24 Synthroid - PO 88 mcg AM MARTINA Administration Metoprolol Succinate 25 mg 06/12/19 10:00 06/14/19 10:17 Toprol Xl - PO 25 mg DAILY MARTINA Administration Morphine Sulfate 2 mg 06/11/19 17:47 06/13/19 00:04 Morphine Sulfate IVPUSH 2 mg Q4H PRN Administration PAIN LEVEL 1-5 Ranolazine 500 mg 06/11/19 22:00 06/14/19 10:16 Ranexa - PO 500 mg BID MARTINA Administration Microbiology 06/11/19 10:30 Blood - Peripheral Venous Blood Culture - Preliminary NO GROWTH OBTAINED AFTER 72 HOURS, INCUBATION TO CONTINUE FOR 2 DAYS. 06/11/19 10:30 Blood - Peripheral Venous Blood Culture - Final Klebsiella Pneumoniae 06/11/19 11:20 Urine - Urine Clean Catch Urine Culture - Final NO GROWTH OBTAINED ASSESSMENT/PLAN: 84 yom with PMHx of CAD s/p CABG, ?chronic stable angina with reportedly non concerning stress test 3 months ago, HTN, HLD, hypothyroidism, chronic low back pain admitted with acute cholangitis/choledocholithiasis/cholelithiasis. -Acute cholangitis with biliary sepsis and Klebsiella bacteremia -Choledocholithasis with obstruction s/p stone removal/stent placement -Cholelithiasis -Abnormal LFts from above -CAD s/p CABG/?chronic stable angina -HTN -HLD -Hypothyroidism -Chronic low back pain Plan: ERCP results noted. Plan for repeat ERCP outpatient for stent placement and possible residual stone fragment removal outpatient. LFTs improved. Tolerating PO, off IVF. pain control. Dr. Chong's input appreciated. Address with family if patient agrees to CCY. NPO after midnight and IVF for now. Hold ASA. No heparin for now. Hold statin. Metoprolol as hemodynamics tolerate. Continue ranexa/levothyroxine DVTPPX SCDs dispo pending/GI surgery plans and clinical improvement. Discussed with patient and nursing in detail, all questions answered. Visit type - Emergency Visit Emergency Visit: Yes ED Registration Date: 06/11/19 Care time: The patient presented to the Emergency Department on the above date and was hospitalized for further evaluation of their emergent condition. - New Patient This patient is new to me today: No - Critical Care Critical Care patient: No - Discharge Referral Referred to [facility] Med [facility].C[facility] No
[2019-06-14] MEDS: DEXTROSE 5%-NORMAL SALINE 1,000 ML IV SCH (18:47)
[2019-06-14] MEDS: ACETAMINOPHEN 1000 MG/100 ML VIAL (NON FORMULARY) IVPB PRN (20:19)
[2019-06-15] MEDS ORDERED: DEXTROSE 5%-WATER 100 ML IVPB ONE ×3 (00:27→18:54)
[2019-06-15] MEDS ORDERED: PIPERACILLIN/TAZOBACTAM 4.5 GM VIAL IVPB ONE ×3 (00:27→18:54)
[2019-06-15] MEDS: PIPERACILLIN/TAZOB 4.5 GM 4.5 GM in DEXTROSE 5%-WATER 100 ML IVPB SCH ×3 (01:38→20:41)
[2019-06-15] MEDS: LEVOTHYROXINE NA 88 MCG TABLET (FP) PO SCH (06:15)
[2019-06-15] MEDS ORDERED: fentaNYL CITRATE 250 MCG/5 ML VIAL ONE (06:58)
[2019-06-15] MEDS ORDERED: PROPOFOL 20 ML ONE (06:58)
[2019-06-15] MEDS ORDERED: ROCURONIUM BROMIDE 50 MG/5 ML SYRINGE ONE (06:58)
[2019-06-15] MEDS ORDERED: SUCCINYLCHOLINE CHLORIDE 200 MG/10 ML SYRINGE ONE (06:58)
[2019-06-15] MEDS ORDERED: MIDAZOLAM HCL 2 MG/2 ML SINGLE DOSE VIAL ONE (06:58)
[2019-06-15] MEDS ORDERED: LIDOCAINE HCL/PF 2% SDV 5ML VIAL ONE (06:59)
[2019-06-15] MEDS ORDERED: DEXAMETHASONE SOD PHOSPHATE 4 MG/1 ML VIAL ONE (06:59)
[2019-06-15] MEDS ORDERED: DESFLURANE GAS 240 ML BOTTLE IH ONE (07:11)
--- NOTE | 2019-06-15 07:17 | PN ---
Physical Exam: SUBJECTIVE: Patient seen and examined fever 101.4 over night tolerating diet denies any pain , very anxious about surgery and anesthesia and would like to decline surgery , PCP discuus with pt as well as surgeron reasons for surgery. OBJECTIVE: Vital Signs Period Temp Pulse Resp BP Sys/Quinn Pulse Ox Last 24 Hr 97.5 F-101.4 F 62-75 17-20 123-148/48-69 96-97 GENERAL: Awake, alert, and fully oriented, in no acute distress. HEAD: Normal with no signs of trauma. LUNGS: Breath sounds equal, clear to auscultation bilaterally. No wheezes, and no crackles. No accessory muscle use. HEART: Regular rate and rhythm, normal S1 and S2 without murmur, rub or gallop. ABDOMEN: Soft, nontender, not distended, normoactive bowel sounds, no guarding, Goodman negative UPPER EXTREMITIES: 2+ pulses, warm, well-perfused. No cyanosis. No clubbing. No peripheral edema. LOWER EXTREMITIES: 2+ pulses, warm, well-perfused. No calf tenderness. No peripheral edema. surgery scar on right knee and left calf NEUROLOGICAL: no focal deficit Normal speech. gait not observed . PSYCHIATRIC: Cooperative. Good eye contact. Appropriate mood and affect. Laboratory Results - last 24 hr 06/14/19 06/14/19 07:36 07:36 WBC 6.5 RBC 3.70 L Hgb 12.6 Hct 35.2 L MCV 95.2 MCH 34.1 H MCHC 35.9 RDW 12.7 Plt Count 144 MPV 7.9 Absolute Neuts (auto) 4.5 Neutrophils % 69.6 Lymphocytes % 18.5 Monocytes % 9.3 Eosinophils % 2.2 Basophils % 0.4 Nucleated RBC % 0 Sodium 141 Potassium 4.0 Chloride 106 Carbon Dioxide 29 Anion Gap 6 L BUN 10.4 Creatinine 1.0 Est GFR (CKD-EPI)AfAm 79.75 Est GFR (CKD-EPI)NonAf 68.81 Random Glucose 94 Calcium 9.0 Phosphorus 2.2 L Magnesium 2.0 Total Bilirubin 1.3 H Direct Bilirubin 0.4 H AST 27 ALT 46 Alkaline Phosphatase 88 Total Protein 6.4 Albumin 3.1 L Active Medications Generic Name Dose Route Start Last Admin Trade Name Freq PRN Reason Stop Dose Admin Acetaminophen 1,000 mg 06/11/19 18:15 06/14/19 20:19 Ofirmev Injection - IVPB 1,000 mg Q6H PRN Administration FEVER Piperacillin Sod/Tazobactam 100 mls @ 200 mls/hr 06/12/19 18:00 06/15/19 01: 38 Sod 4.5 gm/ Dextrose IVPB 200 mls/hr Q8H-IV MARTINA Administration Protocol Dextrose/Sodium Chloride 1,000 mls @ 50 mls/hr 06/14/19 14:45 06/14/19 18:47 D5-Ns - IV 50 mls/hr ASDIR MARTINA Administration Levothyroxine Sodium 88 mcg 06/12/19 07:00 06/15/19 06:15 Synthroid - PO 88 mcg AM MARTINA Administration Metoprolol Succinate 25 mg 06/12/19 10:00 06/14/19 10:17 Toprol Xl - PO 25 mg DAILY MARTINA Administration Morphine Sulfate 2 mg 06/11/19 17:47 06/13/19 00:04 Morphine Sulfate IVPUSH 2 mg Q4H PRN Administration PAIN LEVEL 1-5 Ranolazine 500 mg 06/11/19 22:00 06/14/19 21:45 Ranexa - PO 500 mg BID MARTINA Administration Microbiology 06/11/19 10:30 Blood - Peripheral Venous Blood Culture - Preliminary NO GROWTH OBTAINED AFTER 96 HOURS, INCUBATION TO CONTINUE FOR 1 DAYS. 06/11/19 10:30 Blood - Peripheral Venous Blood Culture - Final Klebsiella Pneumoniae 06/11/19 11:20 Urine - Urine Clean Catch Urine Culture - Final NO GROWTH OBTAINED CBC, BMP 06/15/19 06:40 06/15/19 06:40 ASSESSMENT/PLAN: 84 year old [place] male with pmhx of HTN , HLD, Hypothyroidism , CAD S.P CABG , presented to [facility] with one day history of fever 102 , chills and abdominal pain was found to have CBD dilation and CBD stones admitted to M/S for further evaluation. # Biliary sepsis # Gram negative bacteremia with Klebseilla # obstructive Choledocholilthisis , resolved s.p stent placement # Cholelithisis without acute cholecystitits # acute ascending cholangitis as pt presented with fever 102 ,and chills , might deteriorate into sepsis * S.P ERCP with stone removal and stent placement , * clear liquids per GI * IV fluids * Pain control Morphine * trend lab Bili direct and total , AST, ALT , INR , Type and screen , Amylase and lipase * ID cosulted cont Zosyn day 4 out of 10 * cont on Zosyn , give n Vanc/zosyn in ED one dose * consult surgery for cholecystectomy tomorrow * zofran for nasuea , EKG NSR with No QTC prolongation # CAD S.P CABG Echo and cardiology consulted for pre op risk stratification and clearance # HTN # HLD # Hypothyroidism * hold ASA and statin , resume Metoprolol succ 25 daily, renexa and Synthroid 88 daily #FEN * D5/NS * Monitor lytes * NPO after mid night #Proph scds , no chemoprophylaxis for now # dispo : M/S # code status : Full code NPO after mid night for surgery in AM Visit type - Emergency Visit Emergency Visit: Yes ED Registration Date: 06/11/19 Care time: The patient presented to the Emergency Department on the above date and was hospitalized for further evaluation of their emergent condition. - New Patient This patient is new to me today: No - Critical Care Critical Care patient: No ATTENDING PHYSICIAN STATEMENT I saw and evaluated the patient. I reviewed the resident's note and discussed the case with the resident. I agree with the resident's findings and plan as documented. SUBJECTIVE: OBJECTIVE: ASSESSMENT AND PLAN:
--- NOTE | 2019-06-15 07:23 | PN ---
Progress Note (short form) - Note Progress Note: Attending Surgeon Patient again declines surgery this AM; will resume diet and f/u prn. Ulises Chong MD FACS
[2019-06-15 07:59] LABS: BASO % 0.5 % (0-2.0); EOS % 4.3 % (0-4.5); HEMATOCRIT 36.6 % (35.4-49); HEMOGLOBIN 12.7 GM/dL (11.7-16.9); MCH 33.6 pg (25.7-33.7); MCHC 34.8 g/dl (32.0-35.9); MEAN CELL VOLUME 96.5 fl (80-96); MEAN PLT VOLUME 8.3 fl (7.5-11.1); MONO % 8.7 % (3.8-10.2); NEUT % 64.5 % (42.8-82.8); PLATELET COUNT 162 K/MM3 (134-434); RBC 3.79 M/mm3 (4.00-5.60); RDW 12.8 % (11.9-15.9); WHITE BLOOD COUNT 6.8 K/mm3 (4.0-10.0)
[2019-06-15 08:31] LABS: ALBUMIN 2.8 g/dl (3.4-5.0); BILIRUBIN,DIRECT 0.4 mg/dL (0.0-0.2); BILIRUBIN,TOTAL 1.3 mg/dL (0.2-1); BLOOD UREA NITROGEN 8.4 mg/dL (7-18); CALCIUM 8.9 mg/dL (8.5-10.1); CREATININE 0.9 mg/dL (0.55-1.3); MAGNESIUM 1.9 mg/dL (1.8-2.4); PHOSPHOROUS 2.7 mg/dL (2.5-4.9); POTASSIUM 3.6 mmol/L (3.5-5.1); TOT PROT 6.3 g/dl (6.4-8.2)
--- NOTE | 2019-06-15 09:09 | PN ---
Progress Note, Physician History of Present Illness: Afebrile, abd pain resolved, tolerating regular diet, hesitant for lap cholecystectomy per Dr. Chong. - Current Medication List Current Medications: Active Medications Acetaminophen (Ofirmev Injection -) 1,000 mg IVPB Q6H PRN PRN Reason: FEVER Last Admin: 06/14/19 20:19 Dose: 1,000 mg Piperacillin Sod/Tazobactam (Sod 4.5 gm/ Dextrose) 100 mls @ 200 mls/hr IVPB Q8H-IV MARTINA; Protocol Last Admin: 06/15/19 01:38 Dose: 200 mls/hr Dextrose/Sodium Chloride (D5-Ns -) 1,000 mls @ 50 mls/hr IV ASDIR MARTINA Last Admin: 06/14/19 18:47 Dose: 50 mls/hr Levothyroxine Sodium (Synthroid -) 88 mcg PO AM MARTINA Last Admin: 06/15/19 06:15 Dose: 88 mcg Metoprolol Succinate (Toprol Xl -) 25 mg PO DAILY [facility] Last Admin: 06/14/19 10:17 Dose: 25 mg Morphine Sulfate (Morphine Sulfate) 2 mg IVPUSH Q4H PRN PRN Reason: PAIN LEVEL 1-5 Last Admin: 06/13/19 00:04 Dose: 2 mg Ranolazine (Ranexa -) 500 mg PO BID [facility] Last Admin: 06/14/19 21:45 Dose: 500 mg - Objective Vital Signs: Vital Signs Temperature 98.6 F 06/15/19 05:00 Pulse Rate 62 06/15/19 05:00 Respiratory Rate 18 06/15/19 05:00 Blood Pressure 123/48 L 06/15/19 05:00 O2 Sat by Pulse Oximetry (%) 97 06/14/19 21:00 Constitutional: Yes: No Distress, Calm Neck: Yes: Supple Cardiovascular: Yes: Regular Rate and Rhythm Respiratory: Yes: Regular, CTA Bilaterally Gastrointestinal: Yes: Normal Bowel Sounds, Soft Edema: No Labs: CBC, BMP 06/15/19 06:40 06/15/19 06:40 INR, PTT INR 1.14 (0.83-1.09) H 06/12/19 07:50 Problem List - Problems (1) Cholangitis due to bile duct calculus with obstruction Code(s): K80.31 - CALCULUS OF BILE DUCT W CHOLANGITIS, UNSP, WITH OBSTRUCTION (2) Cholelithiasis Code(s): K80.20 - CALCULUS OF GALLBLADDER W/O CHOLECYSTITIS W/O OBSTRUCTION Qualifiers: Cholelithiasis location: gallbladder and bile duct Cholecystitis presence: without cholecystitis Biliary obstruction: with biliary obstruction Qualified Code(s): K80.71 - Calculus of gallbladder and bile duct without cholecystitis with obstruction (3) Gram-negative bacteremia Code(s): R78.81 - BACTEREMIA (4) CAD (coronary artery disease) Code(s): I25.10 - ATHSCL HEART DISEASE OF [place] CORONARY ARTERY W/O ANG PCTRS Qualifiers: Coronary Disease-Associated Artery/Lesion type: bypass graft [place] vs. transplanted heart: [place] heart Associated angina: without angina Qualified Code(s): I25.810 - Atherosclerosis of coronary artery bypass graft(s) without angina pectoris (5) HTN (hypertension) Code(s): I10 - ESSENTIAL (PRIMARY) HYPERTENSION Qualifiers: Hypertension type: essential hypertension Qualified Code(s): I10 - Essential (primary) hypertension (6) Hx of CABG Code(s): Z95.1 - PRESENCE OF AORTOCORONARY BYPASS GRAFT (7) Hyperlipidemia Code(s): E78.5 - HYPERLIPIDEMIA, UNSPECIFIED Qualifiers: Hyperlipidemia type: pure hypercholesterolemia Qualified Code(s): E78.00 - Pure hypercholesterolemia, unspecified; E78.0 - Pure hypercholesterolemia (8) Hypothyroid Code(s): E03.9 - HYPOTHYROIDISM, UNSPECIFIED Qualifiers: Hypothyroidism type: unspecified Qualified Code(s): E03.9 - Hypothyroidism , unspecified Assessment/Plan 06/10/2019 MRCP: Choledocholithiasis with CBD dilatation up to 9 mm, no cholecystitis 08/18/2018 Echo: Normal LV size and fxn with abnl LV compliance, mild MR, OR, TR 08/19/2018 Lexiscan Myoview: No ischemia, LVEF 70% 1. Acute ascending cholangitis due to obstructing choledocholithasis, biliary sepsis and Klebsiella bacteremia s/p ERCP, stone removal, sphincterotomy and stent implantation improving 2. Cholelithiasis 3. CAD s/p CABG/?chronic stable angina 4. Diastolic dysfunction, euvolemic 5. HTN heart disease 6. HLD 7. Hypothyroidism P:1. Continue Zosyn course per C&S, monitor for post-ERCP pancreatitis, eventual biliary stent and residual stone fragment removal and lap cholecystectomy once clinically stable, patient declines at this time 2. Advancing diet as tolerated 3. Hold Lipitor pending resolution of abnl LFTs, continue Toprol XL 25 qd, Zetia 10 qd, Ranexa 500 bid, hold ASA 81 qd pending possible lap cholecystectomy 4. May proceed with OR from CV-standpoint w/o further testing given recent negative stress testing for ischemia and absence of symptoms of acute coronary syndrome, decompensated CHF or malignant arrhythmia once patient gives informed consent
[2019-06-15] MEDS: metoPROLOL SUCCINATE 25 MG TAB.SR.24H (FP) PO SCH (09:43)
[2019-06-15] MEDS: RANOLAZINE E.R. 500 MG TABLET (FP) PO SCH ×2 (09:43→21:13)
--- NOTE | 2019-06-15 12:25 | PN.GI ---
GI Progress Note Subjective: GI NOte: Phan refused surgery today. I discussed the need for cholecyestectomy again with Phan, his and his son Paras. They are all now consenting. I contacted DR Chong who is scheduling the surgery for tomorrow. - Objective Vital Signs: Vital Signs Temperature 98.6 F 06/15/19 05:00 Pulse Rate 62 06/15/19 05:00 Respiratory Rate 18 06/15/19 05:00 Blood Pressure 123/48 L 06/15/19 05:00 O2 Sat by Pulse Oximetry (%) 97 06/14/19 21:00 Laboratory Tests 06/15/19 06/15/19 06:40 06:40 WBC 6.8 Total Bilirubin 1.3 H Direct Bilirubin 0.4 H AST 22 ALT 40 Alkaline Phosphatase 77 Constitutional: Anxious ...Auscultate: Yes: Normoactive Bowel Sounds ...Palpate: Yes: Soft, Other (nontender) Labs: CBC, BMP 06/15/19 06:40 06/15/19 06:40 INR, PTT INR 1.14 (0.83-1.09) H 06/12/19 07:50 Assessment/Plan Assessment: - Ascending cholangitis due to obstructing CBD stones resolved by ERCP with stone removal and stenting - Needs cholecystectomy and is now consenting Plan: -- For cholecystectomy tomorrow -- Advised Phan and family to followup in my office to arrange a repeat ERCP to remove his stent in 3 months Problem List - Problems (1) Cholangitis due to bile duct calculus with obstruction Code(s): K80.31 - CALCULUS OF BILE DUCT W CHOLANGITIS, UNSP, WITH OBSTRUCTION (2) Cholelithiasis Code(s): K80.20 - CALCULUS OF GALLBLADDER W/O CHOLECYSTITIS W/O OBSTRUCTION Qualifiers: Cholelithiasis location: gallbladder and bile duct Cholecystitis presence: without cholecystitis Biliary obstruction: with biliary obstruction Qualified Code(s): K80.71 - Calculus of gallbladder and bile duct without cholecystitis with obstruction (3) CAD (coronary artery disease) Code(s): I25.10 - ATHSCL HEART DISEASE OF [place] CORONARY ARTERY W/O ANG PCTRS Qualifiers: Coronary Disease-Associated Artery/Lesion type: bypass graft [place] vs. transplanted heart: [place] heart Associated angina: without angina Qualified Code(s): I25.810 - Atherosclerosis of coronary artery bypass graft(s) without angina pectoris (4) HTN (hypertension) Code(s): I10 - ESSENTIAL (PRIMARY) HYPERTENSION Qualifiers: Hypertension type: essential hypertension Qualified Code(s): I10 - Essential (primary) hypertension (5) Hx of CABG Code(s): Z95.1 - PRESENCE OF AORTOCORONARY BYPASS GRAFT (6) Hyperlipidemia Code(s): E78.5 - HYPERLIPIDEMIA, UNSPECIFIED Qualifiers: Hyperlipidemia type: pure hypercholesterolemia Qualified Code(s): E78.00 - Pure hypercholesterolemia, unspecified; E78.0 - Pure hypercholesterolemia (7) Hypothyroid Code(s): E03.9 - HYPOTHYROIDISM, UNSPECIFIED Qualifiers: Hypothyroidism type: unspecified Qualified Code(s): E03.9 - Hypothyroidism , unspecified (8) SIRS (systemic inflammatory response syndrome) Code(s): R65.10 - SIRS OF NON-INFECTIOUS ORIGIN W/O ACUTE ORGAN DYSFUNCTION
--- NOTE | 2019-06-15 12:25 | PN ---
Progress Note (short form) - Note Progress Note: Pt now amendable to surgery. On schedule for tomorrow, 06/16. NPO after midnight except meds. d/w attending Dr Chong
[2019-06-15] MEDS ORDERED: POTASSIUM CHLORIDE TABS 20 MEQ TABLET.ER (FP) PO ONE (13:17)
--- NOTE | 2019-06-15 13:23 | PN ---
Teaching Attending Note Name of Resident: Ramon Aceves ATTENDING PHYSICIAN STATEMENT I saw and evaluated the patient. I reviewed the resident's note and discussed the case with the resident. I agree with the resident's findings and plan as documented with exceptions below. SUBJECTIVE: Patient seen and examined. no nausea, vomiting, abdominal pain. tolerating diet well. OBJECTIVE: Vital Signs Period Temp Pulse Resp BP Sys/Quinn Pulse Ox Last 24 Hr 97.5 F-101.4 F 62-75 18-20 123-157/48-73 97-97 Intake & Output 06/12/19 06/13/19 06/14/19 06/15/19 23:59 23:59 23:59 23:59 Intake Total 5348 201 3439 0 Output Total 850 600 800 Balance 1664 -25 1500 -800 Weight 198 lb GENERAL: sitting in bed in no acute distress Neck: soft, supple CVS:S1S2 regular Chest: CTAB, no rales or wheezing Abdomen:soft, obese, NT, no voluntary or involuntary guarding or rigidity, pos bowel sounds Extremities: no edema Psych: co-operative Home Medications Medication Instructions Recorded Atorvastatin Ca [Lipitor] 80 mg PO HS 04/24/14 Ezetimibe [Zetia] 10 mg PO DAILY 04/24/14 Metoprolol Succinate [Toprol XL -] 25 mg PO DAILY 04/24/14 Aspirin [Ecotrin] 81 mg PO DAILY 07/03/16 Levothyroxine [Synthroid -] 88 mcg PO DAILY 07/03/16 Ranolazine [Ranexa -] 500 mg PO BID 06/11/19 Active Medications Acetaminophen (Ofirmev Injection -) 1,000 mg IVPB Q6H PRN PRN Reason: FEVER Last Admin: 06/14/19 20:19 Dose: 1,000 mg Piperacillin Sod/Tazobactam (Sod 4.5 gm/ Dextrose) 100 mls @ 200 mls/hr IVPB Q8H-IV MARTINA; Protocol Last Admin: 06/15/19 09:43 Dose: 200 mls/hr Dextrose/Sodium Chloride (D5-Ns -) 1,000 mls @ 50 mls/hr IV ASDIR MARTINA Last Admin: 06/14/19 18:47 Dose: 50 mls/hr Levothyroxine Sodium (Synthroid -) 88 mcg PO AM MARTINA Last Admin: 06/15/19 06:15 Dose: 88 mcg Metoprolol Succinate (Toprol Xl -) 25 mg PO DAILY [facility] Last Admin: 06/15/19 09:43 Dose: 25 mg Morphine Sulfate (Morphine Sulfate) 2 mg IVPUSH Q4H PRN PRN Reason: PAIN LEVEL 1-5 Last Admin: 06/13/19 00:04 Dose: 2 mg Potassium Chloride (K-Dur -) 40 meq PO ONCE ONE Stop: 06/15/19 13:18 Ranolazine (Ranexa -) 500 mg PO BID [facility] Last Admin: 06/15/19 09:43 Dose: 500 mg Laboratory Results - last 24 hr 06/15/19 06/15/19 06:40 06:40 WBC 6.8 RBC 3.79 L Hgb 12.7 Hct 36.6 MCV 96.5 H MCH 33.6 MCHC 34.8 RDW 12.8 Plt Count 162 MPV 8.3 Absolute Neuts (auto) 4.4 Neutrophils % 64.5 Lymphocytes % 22.0 Monocytes % 8.7 Eosinophils % 4.3 D Basophils % 0.5 Nucleated RBC % 0 Sodium 142 Potassium 3.6 Chloride 106 Carbon Dioxide 29 Anion Gap 7 L BUN 8.4 Creatinine 0.9 Est GFR (CKD-EPI)AfAm 90.58 Est GFR (CKD-EPI)NonAf 78.15 Random Glucose 102 Calcium 8.9 Phosphorus 2.7 Magnesium 1.9 Total Bilirubin 1.3 H Direct Bilirubin 0.4 H AST 22 ALT 40 Alkaline Phosphatase 77 Total Protein 6.3 L Albumin 2.8 L Microbiology 06/11/19 10:30 Blood - Peripheral Venous Blood Culture - Preliminary NO GROWTH OBTAINED AFTER 96 HOURS, INCUBATION TO CONTINUE FOR 1 DAYS. 06/11/19 10:30 Blood - Peripheral Venous Blood Culture - Final Klebsiella Pneumoniae 06/11/19 11:20 Urine - Urine Clean Catch Urine Culture - Final NO GROWTH OBTAINED ASSESSMENT AND PLAN: 84 yom with PMHx of CAD s/p CABG, ?chronic stable angina with reportedly non concerning stress test 3 months ago, HTN, HLD, hypothyroidism, chronic low back pain admitted with acute cholangitis/choledocholithiasis/cholelithiasis. -Acute cholangitis with biliary sepsis and Klebsiella bacteremia -Choledocholithasis with obstruction s/p stone removal/stent placement -Cholelithiasis -Abnormal LFts from above -CAD s/p CABG/?chronic stable angina -HTN -HLD -Hypothyroidism -Chronic low back pain Plan: Doing well. Discussed with Dr. Harman/Dr. Heath/Dr. Dean/Dr. Chong. patient agreable to lap CCY. plan for tomorrow. NPO after midnight, IVF. Supportive treatment. Zosyn, continue for now, ID input noted. ERCP results noted. Plan for repeat ERCP outpatient for stent placement and possible residual stone fragment removal outpatient. LFTs normalized. Hold ASA. No heparin for now. Hold statin. Metoprolol as hemodynamics tolerate. Continue ranexa/levothyroxine DVTPPX SCDs dispo dc home in 24-48 hours pending CCY if no concerns and doing well post-op. Discussed with patient and nursing in detail, all questions answered. Care coordinated with PCP, GI, surgery, cardiology, patient, family. Total time spent 42 min.
--- NOTE | 2019-06-15 13:29 | PN ---
Progress Note (short form) - Note Progress Note: cureently plannig for surgery in am feels well no complaints s/p ERCP on 06/12 with stent placement febrile to 101.4 overnight Vital Signs Period Temp Pulse Resp BP Sys/Quinn Pulse Ox Last 24 Hr 97.5 F-101.4 F 62-75 18-20 123-157/48-73 97-97 cor-rrr lungs clear abd soft,nt ext no edema CBC, BMP 06/15/19 06:40 06/15/19 06:40 Laboratory Tests 06/13/19 06/15/19 07:10 06:40 Total Bilirubin 1.4 H 1.3 H Direct Bilirubin 0.5 H 0.4 H AST 46 H 22 ALT 65 H 40 Alkaline Phosphatase 96 77 Microbiology 06/11/19 10:30 Blood - Peripheral Venous Blood Culture - Preliminary NO GROWTH OBTAINED AFTER 96 HOURS, INCUBATION TO CONTINUE FOR 1 DAYS. 06/11/19 10:30 Blood - Peripheral Venous Blood Culture - Final Klebsiella Pneumoniae 06/11/19 11:20 Urine - Urine Clean Catch Urine Culture - Final NO GROWTH OBTAINED Current Medications Acetaminophen (Ofirmev Injection -) 1,000 mg IVPB Q6H PRN PRN Reason: FEVER Last Admin: 06/14/19 20:19 Dose: 1,000 mg Piperacillin Sod/Tazobactam (Sod 4.5 gm/ Dextrose) 100 mls @ 200 mls/hr IVPB Q8H-IV MARTINA; Protocol Last Admin: 06/15/19 09:43 Dose: 200 mls/hr Dextrose/Sodium Chloride (D5-Ns -) 1,000 mls @ 50 mls/hr IV ASDIR MARTINA Last Admin: 06/14/19 18:47 Dose: 50 mls/hr Levothyroxine Sodium (Synthroid -) 88 mcg PO AM [facility] Last Admin: 06/15/19 06:15 Dose: 88 mcg Metoprolol Succinate (Toprol Xl -) 25 mg PO DAILY [facility] Last Admin: 06/15/19 09:43 Dose: 25 mg Morphine Sulfate (Morphine Sulfate) 2 mg IVPUSH Q4H PRN PRN Reason: PAIN LEVEL 1-5 Last Admin: 06/13/19 00:04 Dose: 2 mg Potassium Chloride (K-Dur -) 40 meq PO ONCE ONE Stop: 06/15/19 13:18 Ranolazine (Ranexa -) 500 mg PO BID [facility] Last Admin: 06/15/19 09:43 Dose: 500 mg a/p klebsiella bacteremia secondary to choledocholithiasis- s/p ercp and stent recurrent fever overnight repeat blood cultures today cxray would continue zosyn day #4 plan 7 to 10 days antiibotics CAD s/p CABG Problem List - Problems (1) Gram-negative bacteremia Code(s): R78.81 - BACTEREMIA (2) Cholangitis due to bile duct calculus with obstruction Code(s): K80.31 - CALCULUS OF BILE DUCT W CHOLANGITIS, UNSP, WITH OBSTRUCTION (3) CAD (coronary artery disease) Code(s): I25.10 - ATHSCL HEART DISEASE OF [place] CORONARY ARTERY W/O ANG PCTRS Qualifiers: Coronary Disease-Associated Artery/Lesion type: bypass graft [place] vs. transplanted heart: [place] heart Associated angina: without angina Qualified Code(s): I25.810 - Atherosclerosis of coronary artery bypass graft(s) without angina pectoris
[2019-06-15] MEDS: ACETAMINOPHEN 1000 MG/100 ML VIAL (NON FORMULARY) IVPB PRN (15:54)
[2019-06-15] MEDS: DEXTROSE 5%-NORMAL SALINE 1,000 ML IV SCH (15:57)
[2019-06-15] MEDS ORDERED: PANTOPRAZOLE 20 MG TABLET (FP) PO ONE (23:46)
[2019-06-16] MEDS ORDERED: PIPERACILLIN/TAZOBACTAM 4.5 GM VIAL IVPB ONE ×3 (01:09→17:20)
[2019-06-16] MEDS ORDERED: DEXTROSE 5%-WATER 100 ML IVPB ONE ×3 (01:09→17:22)
[2019-06-16] MEDS: PIPERACILLIN/TAZOB 4.5 GM 4.5 GM in DEXTROSE 5%-WATER 100 ML IVPB SCH ×3 (02:44→17:33)
[2019-06-16] MEDS: MORPHINE SULFATE 2 MG/ML VIAL IVPUSH PRN (05:52)
[2019-06-16] MEDS: LEVOTHYROXINE NA 88 MCG TABLET (FP) PO SCH (07:08)
--- NOTE | 2019-06-16 07:28 | PN ---
Physical Exam: SUBJECTIVE: Patient seen and examined at bed side , reports burning sensationa nd soem abdominal apin over night he thick it s from food poisoning , improved with zofran , no pain at my present feeling better and for R today. OBJECTIVE: Vital Signs Period Temp Pulse Resp BP Sys/Quinn Pulse Ox Last 24 Hr 97.8 F-100.4 F 65-74 18-18 130-157/60-73 97-97 GENERAL: Awake, alert, and fully oriented, in no acute distress. HEAD: Normal with no signs of trauma. LUNGS: Breath sounds equal, clear to auscultation bilaterally. No wheezes, and no crackles. No accessory muscle use. HEART: Regular rate and rhythm, normal S1 and S2 without murmur, rub or gallop. ABDOMEN: Soft, nontender, not distended, normoactive bowel sounds, no guarding, Goodman negative UPPER EXTREMITIES: 2+ pulses, warm, well-perfused. No cyanosis. No clubbing. No peripheral edema. LOWER EXTREMITIES: 2+ pulses, warm, well-perfused. No calf tenderness. No peripheral edema. surgery scar on right knee and left calf NEUROLOGICAL: no focal deficit Normal speech. gait not observed . PSYCHIATRIC: Cooperative. Good eye contact. Appropriate mood and affect. Laboratory Results - last 24 hr 06/15/19 06/15/19 06:40 06:40 WBC 6.8 RBC 3.79 L Hgb 12.7 Hct 36.6 MCV 96.5 H MCH 33.6 MCHC 34.8 RDW 12.8 Plt Count 162 MPV 8.3 Absolute Neuts (auto) 4.4 Neutrophils % 64.5 Lymphocytes % 22.0 Monocytes % 8.7 Eosinophils % 4.3 D Basophils % 0.5 Nucleated RBC % 0 Sodium 142 Potassium 3.6 Chloride 106 Carbon Dioxide 29 Anion Gap 7 L BUN 8.4 Creatinine 0.9 Est GFR (CKD-EPI)AfAm 90.58 Est GFR (CKD-EPI)NonAf 78.15 Random Glucose 102 Calcium 8.9 Phosphorus 2.7 Magnesium 1.9 Total Bilirubin 1.3 H Direct Bilirubin 0.4 H AST 22 ALT 40 Alkaline Phosphatase 77 Total Protein 6.3 L Albumin 2.8 L Active Medications Generic Name Dose Route Start Last Admin Trade Name Freq PRN Reason Stop Dose Admin Acetaminophen 1,000 mg 06/11/19 18:15 06/15/19 15:54 Ofirmev Injection - IVPB 1,000 mg Q6H PRN Administration FEVER Piperacillin Sod/Tazobactam 100 mls @ 200 mls/hr 06/12/19 18:00 06/16/19 02: 44 Sod 4.5 gm/ Dextrose IVPB 200 mls/hr Q8H-IV MARTINA Administration Protocol Dextrose/Sodium Chloride 1,000 mls @ 50 mls/hr 06/14/19 14:45 06/15/19 15:57 D5-Ns - IV 50 mls/hr ASDIR MARTINA Administration Levothyroxine Sodium 88 mcg 06/12/19 07:00 06/16/19 07:08 Synthroid - PO Not Given AM MARTINA Metoprolol Succinate 25 mg 06/12/19 10:00 06/15/19 09:43 Toprol Xl - PO 25 mg DAILY MARTINA Administration Morphine Sulfate 2 mg 06/11/19 17:47 06/16/19 05:52 Morphine Sulfate IVPUSH 2 mg Q4H PRN Administration PAIN LEVEL 1-5 Ranolazine 500 mg 06/11/19 22:00 06/15/19 21:13 Ranexa - PO 500 mg BID MARTINA Administration CBC, BMP 06/16/19 06:55 06/16/19 06:55 ASSESSMENT/PLAN: 84 year old pleasant male with pmhx of HTN , HLD, Hypothyroidism , CAD S.P CABG , [facility] with one day history of fever 102 , chills and abdominal pain was found to have CBD dilation and CBD stones admitted to M/S for further evaluation. # Biliary sepsis # Gram negative bacteremia with Klebseilla # obstructive Choledocholilthisis , resolved s.p stent placement # Cholelithisis without acute cholecystitits # acute ascending cholangitis as pt presented with fever 102 ,and chills , might deteriorate into sepsis * S.P ERCP with stone removal and stent placement , * clear liquids per GI ,npo for surgery today * IV fluids * Pain control Morphine * trend lab Bili direct and total , AST, ALT , INR , Type and screen , Amylase and lipase * ID cosulted cont Zosyn day 5 out of 10 * cont on Zosyn , give n Vanc/zosyn in ED one dose * consult surgery for cholecystectomy today * zofran for nasuea , EKG NSR with No QTC prolongation # CAD S.P CABG Echo and cardiology consulted for pre op risk stratification and clearance # HTN # HLD # Hypothyroidism * hold ASA and statin , resume Metoprolol succ 25 daily, renexa and Synthroid 88 daily #FEN * D5/NS * Monitor lytes * NPO for OR today #Proph scds , no chemoprophylaxis for now # dispo : M/S # code status : Full code follow surgery recommendation after lab choley Visit type - Emergency Visit Emergency Visit: Yes ED Registration Date: 06/11/19 Care time: The patient presented to the Emergency Department on the above date and was hospitalized for further evaluation of their emergent condition. - New Patient This patient is new to me today: No - Critical Care Critical Care patient: No ATTENDING PHYSICIAN STATEMENT I saw and evaluated the patient. I reviewed the resident's note and discussed the case with the resident. I agree with the resident's findings and plan as documented. SUBJECTIVE: OBJECTIVE: ASSESSMENT AND PLAN:
[2019-06-16 08:02] LABS: BASO % 0.5 % (0-2.0); EOS % 1.1 % (0-4.5); HEMATOCRIT 34.5 % (35.4-49); HEMOGLOBIN 12.2 GM/dL (11.7-16.9); LYMPH % 12.5 % (8-40); MCH 33.6 pg (25.7-33.7); MCHC 35.2 g/dl (32.0-35.9); MEAN CELL VOLUME 95.5 fl (80-96); MEAN PLT VOLUME 8.5 fl (7.5-11.1); MONO % 7.8 % (3.8-10.2); NEUT % 78.1 % (42.8-82.8); PLATELET COUNT 176 K/MM3 (134-434); RBC 3.62 M/mm3 (4.00-5.60); RDW 12.8 % (11.9-15.9); WHITE BLOOD COUNT 8.1 K/mm3 (4.0-10.0)
[2019-06-16 08:21] LABS: BILIRUBIN,DIRECT 0.4 mg/dL (0.0-0.2); BILIRUBIN,TOTAL 1.1 mg/dL (0.2-1); CALCIUM 8.8 mg/dL (8.5-10.1); CREATININE 0.8 mg/dL (0.55-1.3); MAGNESIUM 1.9 mg/dL (1.8-2.4); PHOSPHOROUS 2.7 mg/dL (2.5-4.9); TOT PROT 6.6 g/dl (6.4-8.2)
[2019-06-16] MEDS: RANOLAZINE E.R. 500 MG TABLET (FP) PO SCH ×3 (09:50→23:21)
[2019-06-16] MEDS: metoPROLOL SUCCINATE 25 MG TAB.SR.24H (FP) PO SCH (09:50)
--- NOTE | 2019-06-16 10:54 | PN ---
Teaching Attending Note Name of Resident: Ramon Aceves ATTENDING PHYSICIAN STATEMENT I saw and evaluated the patient. I reviewed the resident's note and discussed the case with the resident. I agree with the resident's findings and plan as documented with exceptions below. SUBJECTIVE: Patient seen and examined. Reported some nausea and abdominal pain overnight. Subjective fevers. Currently better. no new complaints otherwise. OBJECTIVE: Vital Signs Period Temp Pulse Resp BP Sys/Quinn Pulse Ox Last 24 Hr 97.8 F-100.4 F 65-76 18-20 130-150/60-89 97 Intake & Output 06/13/19 06/14/19 06/15/19 06/16/19 23:59 23:59 23:59 23:59 Intake Total 825 2100 350 550 Output Total 193 064 7437 300 Balance -25 1500 -1175 250 General: sitting in bed in no acute distress Chest: CTAb, no rales or wheezing Abdomen:Soft, mild supra-umbilical and RUQ tenderness, neg Goodman's sign, no voluntary or involuntary guarding or rigidity, pos bowel sounds Extremities: no edema Home Medications Medication Instructions Recorded Atorvastatin Ca [Lipitor] 80 mg PO HS 04/24/14 Ezetimibe [Zetia] 10 mg PO DAILY 04/24/14 Metoprolol Succinate [Toprol XL -] 25 mg PO DAILY 04/24/14 Aspirin [Ecotrin] 81 mg PO DAILY 07/03/16 Levothyroxine [Synthroid -] 88 mcg PO DAILY 07/03/16 Ranolazine [Ranexa -] 500 mg PO BID 06/11/19 Active Medications Acetaminophen (Ofirmev Injection -) 1,000 mg IVPB Q6H PRN PRN Reason: FEVER Last Admin: 06/15/19 15:54 Dose: 1,000 mg Piperacillin Sod/Tazobactam (Sod 4.5 gm/ Dextrose) 100 mls @ 200 mls/hr IVPB Q8H-IV MARTINA; Protocol Last Admin: 06/16/19 09:50 Dose: 200 mls/hr Dextrose/Sodium Chloride (D5-Ns -) 1,000 mls @ 50 mls/hr IV ASDIR MARTINA Last Admin: 06/15/19 15:57 Dose: 50 mls/hr Levothyroxine Sodium (Synthroid -) 88 mcg PO AM MARTINA Last Admin: 06/16/19 07:08 Dose: Not Given Metoprolol Succinate (Toprol Xl -) 25 mg PO DAILY [facility] Last Admin: 06/16/19 09:50 Dose: 25 mg Morphine Sulfate (Morphine Sulfate) 2 mg IVPUSH Q4H PRN PRN Reason: PAIN LEVEL 1-5 Last Admin: 06/16/19 05:52 Dose: 2 mg Ranolazine (Ranexa -) 500 mg PO BID [facility] Last Admin: 06/16/19 09:55 Dose: Not Given Laboratory Results - last 24 hr 06/16/19 06/16/19 06:55 06:55 WBC 8.1 RBC 3.62 L Hgb 12.2 Hct 34.5 L MCV 95.5 MCH 33.6 MCHC 35.2 RDW 12.8 Plt Count 176 MPV 8.5 Absolute Neuts (auto) 6.3 Neutrophils % 78.1 D Lymphocytes % 12.5 D Monocytes % 7.8 Eosinophils % 1.1 Basophils % 0.5 Nucleated RBC % 0 Sodium 139 Potassium 4.0 Chloride 106 Carbon Dioxide 25 Anion Gap 7 L BUN 7.0 Creatinine 0.8 Est GFR (CKD-EPI)AfAm 95.07 Est GFR (CKD-EPI)NonAf 82.03 Random Glucose 119 H Calcium 8.8 Phosphorus 2.7 Magnesium 1.9 Total Bilirubin 1.1 H Direct Bilirubin 0.4 H AST 28 ALT 42 Alkaline Phosphatase 82 Total Protein 6.6 Albumin 3.0 L Microbiology 06/11/19 10:30 Blood - Peripheral Venous Blood Culture - Final NO GROWTH AFTER 5 DAYS INCUBATION 06/11/19 10:30 Blood - Peripheral Venous Blood Culture - Final Klebsiella Pneumoniae 06/11/19 11:20 Urine - Urine Clean Catch Urine Culture - Final NO GROWTH OBTAINED ASSESSMENT AND PLAN: 84 yom with PMHx of CAD s/p CABG, ?chronic stable angina with reportedly non concerning stress test 3 months ago, HTN, HLD, hypothyroidism, chronic low back pain admitted with acute cholangitis/choledocholithiasis/cholelithiasis. -Acute cholangitis with biliary sepsis and Klebsiella bacteremia -Choledocholithasis with obstruction s/p stone removal/stent placement -Cholelithiasis -Abnormal LFts from above -CAD s/p CABG/?chronic stable angina -HTN -HLD -Hypothyroidism -Chronic low back pain Plan: For lap CCY today, follow up. Surgery/GI/Cardiology input appreciated. IVF, pain control, supportive treatment. Zosyn, continue for now, ID input noted. ERCP results noted. Plan for repeat ERCP outpatient for stent placement and possible residual stone fragment removal outpatient. LFTs normalized. Hold ASA. No heparin for now. Hold statin. Metoprolol as hemodynamics tolerate. Continue ranexa/levothyroxine DVTPPX SCDs dispo dc home in 24-48 hours post CCY if no concerns and doing well post-op. Discussed with patient and nursing in detail, all questions answered.
--- NOTE | 2019-06-16 12:21 | PN ---
Progress Note (short form) - Note Progress Note: Chief Complaint: Events noted, notes reviewed, seen earlier today prior to proceeding with scheduled laparoscopic cholecystectomy, denies any chest pain or dyspnea, reported recurrent abdominal discomfort requiring morphine therapy administration History of Present Illness: Seen and examined. Events noted, notes reviewed, seen earlier today prior to proceeding with scheduled laparoscopic cholecystectomy, denies any chest pain or dyspnea, reported recurrent abdominal discomfort requiring morphine therapy administration 08/18/2018 echocardiography revealed normal LV size and function with abnormal LV compliance, mild MR and TR 08/19/2018 pharmacologic Lexiscan myocardial perfusion imaging study revealed no ischemia and LVEF of 70% - Current Medication List Current Medications: Current Medications Acetaminophen (Ofirmev Injection -) 1,000 mg IVPB Q6H PRN PRN Reason: FEVER Last Admin: 06/15/19 15:54 Dose: 1,000 mg Fentanyl (Sublimaze Injection -) 50 mcg IVPUSH [id number] PRN PRN Reason: PAIN-PACU ORDER X 4 DOSES ONLY Piperacillin Sod/Tazobactam (Sod 4.5 gm/ Dextrose) 100 mls @ 200 mls/hr IVPB Q8H-IV MARTINA; Protocol Last Admin: 06/16/19 09:50 Dose: 200 mls/hr Dextrose/Sodium Chloride (D5-Ns -) 1,000 mls @ 50 mls/hr IV ASDIR [facility] Last Admin: 06/15/19 15:57 Dose: 50 mls/hr Levothyroxine Sodium (Synthroid -) 88 mcg PO AM [facility] Last Admin: 06/16/19 07:08 Dose: Not Given Metoprolol Succinate (Toprol Xl -) 25 mg PO DAILY [facility] Last Admin: 06/16/19 09:50 Dose: 25 mg Morphine Sulfate (Morphine Sulfate) 2 mg IVPUSH Q4H PRN PRN Reason: PAIN LEVEL 1-5 Last Admin: 06/16/19 05:52 Dose: 2 mg Ondansetron HCl (Zofran Injection) 4 mg IVPUSH Q6H PRN PRN Reason: NAUSEA AND/OR VOMITING Ranolazine (Ranexa -) 500 mg PO BID [facility] Last Admin: 06/16/19 09:55 Dose: Not Given Review of Systems Cardiovascular: As noted above Respiratory: denies: As noted above Gastrointestinal: denies: Nausea, Vomiting, Diarrhea, Constipation but reported recurrent Abdominal Discomfort as noted above Musculoskeletal: No Symptoms Reported Endocrine: No Symptoms Reported - Objective Vital Signs: Last Vital Signs Temp Pulse Resp BP Pulse Ox 99.4 F 76 20 140/89 95 06/16/19 08:33 06/16/19 08:33 06/16/19 08:33 06/16/19 08:33 06/16/19 09:00 Intake & Output 06/13/19 06/14/19 06/15/19 06/16/19 23:59 23:59 23:59 23:59 Intake Total 825 2100 350 830 Output Total 962 798 9401 300 Balance -25 1500 -1175 530 Constitutional: No Distress, Calm, Thin Neck: Supple Negative JVD Cardiovascular: S1 S2 Regular Rate and Rhythm Respiratory: Clear to A&P Bilaterally Ext: No Edema Labs: CBC, BMP 06/16/19 06:55 06/16/19 06:55 Hepatic Panel Total Bilirubin 1.1 mg/dL (0.2-1) H 06/16/19 06:55 Direct Bilirubin 0.4 mg/dL (0.0-0.2) H 06/16/19 06:55 AST 28 U/L (15-37) 06/16/19 06:55 ALT 42 U/L (13-61) 06/16/19 06:55 Alkaline Phosphatase 82 U/L (45-117) 06/16/19 06:55 Albumin 3.0 g/dl (3.4-5.0) L 06/16/19 06:55 Assessment/Plan ASSESSMENT: 1. Acute ascending cholangitis due to obstructing choledocholithasis, biliary sepsis/Klebsiella bacteremia post ERCP stone removal- sphincterotomy- stent implantation for schedule laparoscopic cholecystectomy 2. Cholelithiasis for schedule laparoscopic cholecystectomy 3. CAD post CABG chronic angina pectoris, clinically stable 4. Diastolic LV dysfunction with clinical class 0 [place] [employer] classification left ventricular failure 5. HTN 6. Hypercholesterolemia 7. Hypothyroidism PLAN: 1. Continue to withhold Lipitor therapy pending resolution of liver function test abnormality 2. Continue Toprol XL 3. Continue Ranexa 4. Continue to withhold ASA pending completion of the above planned procedure/ laparoscopic cholecystectomy 5. As outlined in the prior notes there are no absolute contraindications in proceeding with the above planned laparoscopic cholecystectomy considering that there is no clinical evidence of acute coronary syndrome and/or de-compensated congestive heart failure and/or malignant ventricular arrhythmia, patient's cardiovascular medications are to be administered with a sip of water prior to the above planned procedure this morning- Toprol-XL and Darlene Devries MD
[2019-06-16] MEDS ORDERED: BUPIVACAINE HCL/PF 0.5% (5 MG/ML) 30 ML VIAL IJ ONE ×3 (12:27→14:50)
[2019-06-16] MEDS ORDERED: ONDANSETRON 4 MG/2 ML VIAL IVPUSH PRN ×2 (13:18→16:59)
[2019-06-16] MEDS ORDERED: ROCURONIUM BROMIDE 50 MG/5 ML SYRINGE ONE (13:24)
[2019-06-16] MEDS ORDERED: PROPOFOL 20 ML ONE (13:24)
[2019-06-16] MEDS ORDERED: SUCCINYLCHOLINE CHLORIDE 200 MG/10 ML SYRINGE ONE (13:24)
[2019-06-16] MEDS ORDERED: HYDROmorphone HCl 2 MG/ML VIAL ONE (14:03)
[2019-06-16] MEDS: DEXTROSE 5%-NORMAL SALINE 1,000 ML IV SCH (14:45)
[2019-06-16] MEDS ORDERED: DEXAMETHASONE SOD PHOSPHATE 4 MG/1 ML VIAL ONE (14:50)
[2019-06-16] MEDS ORDERED: NEOSTIGMINE METHYLSULFATE 0.5 MG/ML - 10 ML MDV ONE (15:08)
[2019-06-16] MEDS ORDERED: GLYCOPYRROLATE 0.2 MG/1 ML VIAL ONE (15:08)
[2019-06-16] MEDS ORDERED: SODIUM CHLORIDE 0.9% 500 ML INFUS.BAG IV SCH ×2 (15:45→16:59)
[2019-06-16] MEDS ORDERED: oxyCODONE HCL 5 MG TABLET PO PRN ×2 (15:46→16:59)
[2019-06-16] MEDS ORDERED: POLYETHYLENE GLYCOL 3350 119 GM BTL PO PRN ×2 (15:47→16:59)
--- NOTE | 2019-06-16 15:49 | OP ---
Operative Note - Note: Operative Date: 06/16/19 Pre-Operative Diagnosis: cholelithiasis; choledocholithiasis and cholangitis Operation: Laparoscopic cholecystectomy Findings: as dictated Post-Operative Diagnosis: Same as Pre-op Surgeon: Ulises Chong Shirring Machine Operator: Kristi Weathers Anesthesiologist/WEDDING CAKE DESIGNER: Feliciano Olson Anesthesia: General, Local Specimens Removed: gallbladder Estimated Blood Loss (mls): 100 (ml) Drains & Tubes with Location: ANGELA left in gallbladder bed Fluid Volume Replaced (mls): 1 (L LR) Operative Report Dictated: Yes
--- NOTE | 2019-06-16 15:52 | SURG ---
Surgery Outside Repairer Special Note Outside Repairer Special: Kristi Weathers PA-C (Suzy) Date of Service: 06/16/19 Diagnosis: cholelithiasis; choledocholithiasis and cholangitis Procedure: Laparoscopic cholecystectomy I was present for the entirety of the operative procedure. For further detail, please refer to operative report. Visit type - Case Type Case Type: ED Admission - Emergency Emergency Visit: Yes ED Registration Date: 06/11/19 Care time: The patient presented to the Emergency Department on the above date and was hospitalized for further evaluation of their emergent condition. - New patient This patient is new to me today: Yes Date on this admission: 06/16/19 - Critical Care Critical Care patient: No
[2019-06-16] MEDS ORDERED: ACETAMINOPHEN INJECTION 100 ML IVPB ONE (16:14)
[2019-06-16] MEDS: ACETAMINOPHEN 1000 MG/100 ML VIAL (NON FORMULARY) IVPB PRN (16:15)
[2019-06-16] MEDS ORDERED: MORPHINE SULFATE 2 MG/ML VIAL IVPUSH PRN (16:59)
--- NOTE | 2019-06-16 18:35 | PN.GI ---
GI Progress Note Subjective: GI NOte: Phan is now postop. He is c/o dry lips but is otherwise comfortable and stable Laboratory Tests 06/16/19 06:55 Magnesium 1.9 Total Bilirubin 1.1 H Direct Bilirubin 0.4 H AST 28 ALT 42 Alkaline Phosphatase 82 - Objective Vital Signs: Vital Signs Temperature 98.7 F 06/16/19 16:45 Pulse Rate 60 06/16/19 16:45 Respiratory Rate 10 06/16/19 16:45 Blood Pressure 144/63 06/16/19 16:45 O2 Sat by Pulse Oximetry (%) 97 06/16/19 16:45 Constitutional: Calm Gastrointestinal Inspection: Yes: Other (bandages in place - did not manipulate) ...Auscultate: Yes: No Bowel Sounds Labs: CBC, BMP 06/16/19 06:55 06/16/19 06:55 INR, PTT INR 1.14 (0.83-1.09) H 06/12/19 07:50 Assessment/Plan Assessment: - Ascending cholangitis due to obstructing CBD stones resolved by ERCP with stone removal and stenting - Now s/p cholecystectomy Plan: -- Postcholecystectomy plan as per Dr Chong. -- Advised Phan and family to followup in my office to arrange a repeat ERCP to remove his stent in 3 months. Advised to take Ursodiol until then Problem List - Problems (1) S/P cholecystectomy Code(s): Z90.49 - ACQUIRED ABSENCE OF OTHER SPECIFIED PARTS OF DIGESTIVE TRACT (2) Cholangitis due to bile duct calculus with obstruction Code(s): K80.31 - CALCULUS OF BILE DUCT W CHOLANGITIS, UNSP, WITH OBSTRUCTION (3) Cholelithiasis Code(s): K80.20 - CALCULUS OF GALLBLADDER W/O CHOLECYSTITIS W/O OBSTRUCTION Qualifiers: Cholelithiasis location: gallbladder and bile duct Cholecystitis presence: without cholecystitis Biliary obstruction: with biliary obstruction Qualified Code(s): K80.71 - Calculus of gallbladder and bile duct without cholecystitis with obstruction (4) CAD (coronary artery disease) Code(s): I25.10 - ATHSCL HEART DISEASE OF [place] CORONARY ARTERY W/O ANG PCTRS Qualifiers: Coronary Disease-Associated Artery/Lesion type: bypass graft [place] vs. transplanted heart: [place] heart Associated angina: without angina Qualified Code(s): I25.810 - Atherosclerosis of coronary artery bypass graft(s) without angina pectoris (5) HTN (hypertension) Code(s): I10 - ESSENTIAL (PRIMARY) HYPERTENSION Qualifiers: Hypertension type: essential hypertension Qualified Code(s): I10 - Essential (primary) hypertension (6) Hx of CABG Code(s): Z95.1 - PRESENCE OF AORTOCORONARY BYPASS GRAFT (7) Hyperlipidemia Code(s): E78.5 - HYPERLIPIDEMIA, UNSPECIFIED Qualifiers: Hyperlipidemia type: pure hypercholesterolemia Qualified Code(s): E78.00 - Pure hypercholesterolemia, unspecified; E78.0 - Pure hypercholesterolemia (8) Hypothyroid Code(s): E03.9 - HYPOTHYROIDISM, UNSPECIFIED Qualifiers: Hypothyroidism type: unspecified Qualified Code(s): E03.9 - Hypothyroidism , unspecified (9) SIRS (systemic inflammatory response syndrome) Code(s): R65.10 - SIRS OF NON-INFECTIOUS ORIGIN W/O ACUTE ORGAN DYSFUNCTION
[2019-06-16] MEDS ORDERED: DOCUSATE SODIUM 100 MG CAPSULE (FP) PO SCH (22:00)
[2019-06-16] MEDS: DOCUSATE SODIUM 100 MG CAPSULE (FP) PO SCH (23:21)
[2019-06-16] MEDS: URSODIOL 300 MG CAPSULE PO SCH (23:21)
[2019-06-17] MEDS ORDERED: PIPERACILLIN/TAZOBACTAM 4.5 GM VIAL IVPB ONE ×3 (02:16→17:35)
[2019-06-17] MEDS ORDERED: DEXTROSE 5%-WATER 100 ML IVPB ONE ×3 (02:16→17:35)
[2019-06-17] MEDS: PIPERACILLIN/TAZOB 4.5 GM 4.5 GM in DEXTROSE 5%-WATER 100 ML IVPB SCH ×3 (02:24→17:45)
[2019-06-17] MEDS: LEVOTHYROXINE NA 88 MCG TABLET (FP) PO SCH (06:44)
--- NOTE | 2019-06-17 07:50 | PN ---
Physical Exam: SUBJECTIVE: Patient seen and examined felling excellent , smiling , tolerating liquid diet , can advance pass gases , ANGELA drained 50 cc over night. OBJECTIVE: Vital Signs Period Temp Pulse Resp BP Sys/Quinn Pulse Ox Last 24 Hr 97.5 F-99.4 F 54-76 10-20 130-152/58-89 93-99 GENERAL: Awake, alert, and fully oriented, in no acute distress. HEAD: Normal with no signs of trauma. LUNGS: Breath sounds equal, clear to auscultation bilaterally. No wheezes, and no crackles. No accessory muscle use. HEART: Regular rate and rhythm, normal S1 and S2 without murmur, rub or gallop. ABDOMEN: Soft, nontender, not distended, normoactive bowel sounds, no guarding, Angela in place , three small incision cover with gauze s.p lap pinky UPPER EXTREMITIES: 2+ pulses, warm, well-perfused. No cyanosis. No clubbing. No peripheral edema. LOWER EXTREMITIES: 2+ pulses, warm, well-perfused. No calf tenderness. No peripheral edema. surgery scar on right knee and left calf NEUROLOGICAL: no focal deficit Normal speech. gait not observed . PSYCHIATRIC: Cooperative. Good eye contact. Appropriate mood and affect. Laboratory Results - last 24 hr 06/16/19 06/16/19 06:55 06:55 WBC 8.1 RBC 3.62 L Hgb 12.2 Hct 34.5 L MCV 95.5 MCH 33.6 MCHC 35.2 RDW 12.8 Plt Count 176 MPV 8.5 Absolute Neuts (auto) 6.3 Neutrophils % 78.1 D Lymphocytes % 12.5 D Monocytes % 7.8 Eosinophils % 1.1 Basophils % 0.5 Nucleated RBC % 0 Sodium 139 Potassium 4.0 Chloride 106 Carbon Dioxide 25 Anion Gap 7 L BUN 7.0 Creatinine 0.8 Est GFR (CKD-EPI)AfAm 95.07 Est GFR (CKD-EPI)NonAf 82.03 Random Glucose 119 H Calcium 8.8 Phosphorus 2.7 Magnesium 1.9 Total Bilirubin 1.1 H Direct Bilirubin 0.4 H AST 28 ALT 42 Alkaline Phosphatase 82 Total Protein 6.6 Albumin 3.0 L Active Medications Generic Name Dose Route Start Last Admin Trade Name Freq PRN Reason Stop Dose Admin Docusate Sodium 100 mg 06/16/19 22:00 06/16/19 23:21 Colace - PO 100 mg BID MARTINA Administration Piperacillin Sod/Tazobactam 100 mls @ 200 mls/hr 06/16/19 18:00 06/17/19 02: 24 Sod 4.5 gm/ Dextrose IVPB 200 mls/hr Q8H-IV MARTINA Administration Protocol Levothyroxine Sodium 88 mcg 06/17/19 07:00 06/17/19 06:44 Synthroid - PO 88 mcg AM MARTINA Administration Metoprolol Succinate 25 mg 06/17/19 10:00 Toprol Xl - PO DAILY MARTINA Morphine Sulfate 2 mg 06/16/19 16:59 Morphine Sulfate IVPUSH Q4H PRN PAIN LEVEL 1-5 Ondansetron HCl 4 mg 06/16/19 16:59 06/16/19 20:50 Zofran Injection IVPUSH 4 mg Q6H PRN Administration NAUSEA AND/OR VOMITING Oxycodone HCl 5 mg 06/16/19 16:59 Roxicodone - PO Q6H PRN PAIN LEVEL 4 - 6 Polyethylene Glycol 17 gm 06/16/19 16:59 Miralax (For Daily Use) - PO DAILY PRN CONSTIPATION Ranolazine 500 mg 06/16/19 22:00 06/16/19 23:21 Ranexa - PO 500 mg BID MARTINA Administration Ursodiol 300 mg 06/16/19 22:00 06/16/19 23:21 Actigal - PO 300 mg BID MARTINA Administration CBC, BMP 06/17/19 08:45 06/17/19 08:45 ASSESSMENT/PLAN: 84 year old pleasant male with pmhx of HTN , HLD, Hypothyroidism , CAD S.P CABG , [facility] one day history of fever 102 , chills and abdominal pain was found to have CBD dilation and CBD stones admitted to M/S for further evaluation. # Biliary sepsis # Gram negative bacteremia with Klebseilla # obstructive Choledocholilthisis , resolved s.p stent placement # Cholelithisis without acute cholecystitits # acute ascending cholangitis as pt presented with fever 102 ,and chills , POD# 1 S.P ERCP with stone removal and stent placement , clear liquids per GI ,npo for surgery today IV fluids Pain control Morphine trend lab Bili direct and total , AST, ALT , INR , Type and screen , Amylase and lipase ID cosulted cont Zosyn day 6 out of 10 cont on Zosyn , give n Vanc/zosyn in ED one dose zofran for nasuea , EKG NSR with No QTC prolongation # CAD S.P CABG Echo and cardiology consulted for pre op risk stratification and clearance # HTN # HLD # Hypothyroidism hold ASA and statin , resume Metoprolol succ 25 daily, renexa and Synthroid 88 daily #FEN D5/NS Monitor lytes advance diet as tolerated #Proph scds , no chemoprophylaxis for now # dispo : M/S # code status : Full code might dc in next 24 hour Visit type - Emergency Visit Emergency Visit: Yes ED Registration Date: 06/11/19 Care time: The patient presented to the Emergency Department on the above date and was hospitalized for further evaluation of their emergent condition. - New Patient This patient is new to me today: No - Critical Care Critical Care patient: No - Discharge Referral Referred to [facility] Med [facility] No ATTENDING PHYSICIAN STATEMENT I saw and evaluated the patient. I reviewed the resident's note and discussed the case with the resident. I agree with the resident's findings and plan as documented. SUBJECTIVE: OBJECTIVE: ASSESSMENT AND PLAN:
--- NOTE | 2019-06-17 08:53 | PN ---
Progress Note (short form) - Note Progress Note: Anesthesia POD#1 S/P LAP Cholecystectomy under GA VSS,no N/V,mild pain,clears are started. No complications seen. Lucina Long MD.
[2019-06-17 09:28] LABS: BASO % 0.2 % (0-2.0); HEMATOCRIT 34.1 % (35.4-49); HEMOGLOBIN 11.8 GM/dL (11.7-16.9); LYMPH % 9.1 % (8-40); MCH 33.3 pg (25.7-33.7); MCHC 34.4 g/dl (32.0-35.9); MEAN CELL VOLUME 96.7 fl (80-96); MEAN PLT VOLUME 8.6 fl (7.5-11.1); NEUT % 85.7 % (42.8-82.8); PLATELET COUNT 184 K/MM3 (134-434); RBC 3.53 M/mm3 (4.00-5.60); RDW 12.7 % (11.9-15.9); WHITE BLOOD COUNT 8.8 K/mm3 (4.0-10.0)
[2019-06-17 10:00] LABS: ALBUMIN 2.6 g/dl (3.4-5.0); BILIRUBIN,DIRECT 0.3 mg/dL (0.0-0.2); BILIRUBIN,TOTAL 0.7 mg/dL (0.2-1); BLOOD UREA NITROGEN 11.7 mg/dL (7-18); CALCIUM 8.9 mg/dL (8.5-10.1); CREATININE 0.9 mg/dL (0.55-1.3); PHOSPHOROUS 2.8 mg/dL (2.5-4.9); TOT PROT 6.3 g/dl (6.4-8.2)
[2019-06-17] MEDS ORDERED: ACETAMINOPHEN 325 MG TABLET (FP) PO PRN (11:16)
[2019-06-17] MEDS ORDERED: oxyCODONE HCL 5 MG TABLET PO PRN (11:16)
--- NOTE | 2019-06-17 11:18 | PN ---
Teaching Attending Note Name of Resident: Ramon Aceves ATTENDING PHYSICIAN STATEMENT I saw and evaluated the patient. I reviewed the resident's note and discussed the case with the resident. I agree with the resident's findings and plan as documented with exceptions below. SUBJECTIVE: patient seen and examined. Denies any nausea, vomiting, abdominal pain or concerns. Tolerating liquids well, passing gas. no bm yet. OBJECTIVE: Vital Signs Period Temp Pulse Resp BP Sys/Quinn Pulse Ox Last 24 Hr 97.5 F-98.7 F 54-72 10-20 130-152/58-81 93-99 Intake & Output 06/14/19 06/15/19 06/16/19 06/17/19 23:59 23:59 23:59 23:59 Intake Total 2100 350 2800 890 Output Total 600 1525 1000 50 Balance 1500 -1175 1800 840 General: sitting in bed in no acute distress Chest: CTAb, no rales or wheezing Abdomen:Soft, obese, distended, pos bowel sounds, NT throughout, ANGELA draip RUQ with sero-sanguinous drainage, laparoscopic sites clean Extremities: no edema Home Medications Medication Instructions Recorded Atorvastatin Ca [Lipitor] 80 mg PO HS 04/24/14 Ezetimibe [Zetia] 10 mg PO DAILY 04/24/14 Metoprolol Succinate [Toprol XL -] 25 mg PO DAILY 04/24/14 Aspirin [Ecotrin] 81 mg PO DAILY 07/03/16 Levothyroxine [Synthroid -] 88 mcg PO DAILY 07/03/16 Ranolazine [Ranexa -] 500 mg PO BID 06/11/19 Active Medications Docusate Sodium (Colace -) 100 mg PO BID [facility] Last Admin: 06/16/19 23:21 Dose: 100 mg Piperacillin Sod/Tazobactam (Sod 4.5 gm/ Dextrose) 100 mls @ 200 mls/hr IVPB Q8H-IV MARTINA; Protocol Last Admin: 06/17/19 02:24 Dose: 200 mls/hr Levothyroxine Sodium (Synthroid -) 88 mcg PO AM MARTINA Last Admin: 06/17/19 06:44 Dose: 88 mcg Metoprolol Succinate (Toprol Xl -) 25 mg PO DAILY MARTINA Morphine Sulfate (Morphine Sulfate) 2 mg IVPUSH Q4H PRN PRN Reason: PAIN LEVEL 1-5 Ondansetron HCl (Zofran Injection) 4 mg IVPUSH Q6H PRN PRN Reason: NAUSEA AND/OR VOMITING Last Admin: 06/16/19 20:50 Dose: 4 mg Oxycodone HCl (Roxicodone -) 5 mg PO Q6H PRN PRN Reason: PAIN LEVEL 4 - 6 Polyethylene Glycol (Miralax (For Daily Use) -) 17 gm PO DAILY PRN PRN Reason: CONSTIPATION Ranolazine (Ranexa -) 500 mg PO BID [facility] Last Admin: 06/16/19 23:21 Dose: 500 mg Ursodiol (Actigal -) 300 mg PO BID [facility] Last Admin: 06/16/19 23:21 Dose: 300 mg Laboratory Results - last 24 hr 06/17/19 06/17/19 08:45 08:45 WBC 8.8 RBC 3.53 L Hgb 11.8 Hct 34.1 L MCV 96.7 H MCH 33.3 MCHC 34.4 RDW 12.7 Plt Count 184 MPV 8.6 Absolute Neuts (auto) 7.6 Neutrophils % 85.7 H Lymphocytes % 9.1 D Monocytes % 5.0 Eosinophils % 0.0 D Basophils % 0.2 Nucleated RBC % 0 Sodium 140 Potassium 4.0 Chloride 104 Carbon Dioxide 27 Anion Gap 9 BUN 11.7 Creatinine 0.9 Est GFR (CKD-EPI)AfAm 90.58 Est GFR (CKD-EPI)NonAf 78.15 Random Glucose 124 H Calcium 8.9 Phosphorus 2.8 Magnesium 2.0 Total Bilirubin 0.7 Direct Bilirubin 0.3 H AST 43 H ALT 54 Alkaline Phosphatase 73 Total Protein 6.3 L Albumin 2.6 L Microbiology 06/15/19 15:05 Blood - Peripheral Venous Blood Culture - Preliminary NO GROWTH OBTAINED AFTER 24 HOURS, INCUBATION TO CONTINUE FOR 4 DAYS. 06/15/19 15:30 Blood - Peripheral Venous Blood Culture - Preliminary NO GROWTH OBTAINED AFTER 24 HOURS, INCUBATION TO CONTINUE FOR 4 DAYS. 06/11/19 10:30 Blood - Peripheral Venous Blood Culture - Final NO GROWTH AFTER 5 DAYS INCUBATION 06/11/19 10:30 Blood - Peripheral Venous Blood Culture - Final Klebsiella Pneumoniae 06/11/19 11:20 Urine - Urine Clean Catch Urine Culture - Final NO GROWTH OBTAINED ASSESSMENT AND PLAN: 84 yom with PMHx of CAD s/p CABG, ?chronic stable angina with reportedly non concerning stress test 3 months ago, HTN, HLD, hypothyroidism, chronic low back pain admitted with acute cholangitis/choledocholithiasis/cholelithiasis. -Acute cholangitis with biliary sepsis and Klebsiella bacteremia -Choledocholithasis with obstruction s/p stone removal/stent placement -Cholelithiasis -Abnormal LFts from above -CAD s/p CABG/?chronic stable angina -HTN -HLD -Hypothyroidism -Chronic low back pain Plan: s/p lap CCY with ANGELA drain 06/16. Doing well Discussed with Dr. Chong, advance to regular diet. OOB, Incentive spirometry. GI input appreciated. LFTs normalized. Outpatient ERCP in 3 months for stent removal and possible residual stone fragment removal outpatient. Started on ursodiol. Cardiology input noted. dc morphine. oxycodone/tylenol prn for pain. Zosyn, continue for now, ID input noted. LFTs normalized. Resume ASA per surgery. resume statin on dc. Continue metoprolol/ranexa/levothyroxine DVTPPX lovenox PT eval noted dispo dc home services in 24-48 hours if pending clinical improvement and drain output. Discussed with patient and nursing in detail, all questions answered.
[2019-06-17] MEDS: RANOLAZINE E.R. 500 MG TABLET (FP) PO SCH ×2 (11:19→21:52)
[2019-06-17] MEDS: URSODIOL 300 MG CAPSULE PO SCH ×2 (11:19→21:52)
[2019-06-17] MEDS: metoPROLOL SUCCINATE 25 MG TAB.SR.24H (FP) PO SCH (11:19)
[2019-06-17] MEDS: DOCUSATE SODIUM 100 MG CAPSULE (FP) PO SCH ×2 (11:19→21:52)
--- NOTE | 2019-06-17 12:55 | PN ---
Progress Note (short form) - Note Progress Note: POD 1, s/p Lap pinky Pt seen and examined on AM rounds. Reports he is feeling well. Has some pain improved with pain meds. Has not been oob yet. Tolerating clears. No flatus. Denies cp/sob, n/v/d. Vital Signs Temp 98 F 06/17/19 11:20 Pulse 68 06/17/19 11:20 Resp 20 06/17/19 11:20 BP 136/68 06/17/19 11:20 Pulse Ox 96 06/16/19 21:00 Intake & Output 06/16/19 06/17/19 06/17/19 23:59 11:59 23:59 Intake Total 2120 890 Output Total 700 50 Balance 1420 840 Intake: IV 1600 550 D5-Ns - 1,000 ml @ 50 mls 400 550 /hr IV ASDIR MARTINA Rx#: [id number] IVPB 200 100 Oral 240 240 Oral Supplement 80 Output: Drainage 600 50 Right Abdomen 100 50 Urine 0 Estimated Blood Loss 100 Other: Voiding Method Urinal Urinal # Unmeasured Voids Void 1 2 Bowel Movement No CBC, BMP 06/17/19 08:45 06/17/19 08:45 Gen: awake, alert, nad Resp: Unlabored on RA Abdo: soft, minimally distended, + bowel sounds, + ttp at incision sites ( appropriate to status). All dressings c/d/i. Drain in place with approx 5 ml serosanguinous output in reservoir, tubing stripped, surrounding dressing c/d/ i. A/P: 84 y/o M w/ PMHx HTN, HLD, hypothyroidism, CAD s/p CABG, admitted 06/11 with fevers/chills and abdo pain, found to have CBD dilatation and stones, pt now s/p ERCP on 06/15 with sphincterotomy/stone extraction and stent placement for ascending cholangitis, now POD 1, s/p Lap pinky. Afebrile, VSS Labs stable [place] output 50 ml overnight -Continue Iv abx -Will keep drain until tomorrow and evaluate for removal at that time -May advance diet -OOb as tolerated -Remainder of care per primary team d/w attending Dr Chong
--- NOTE | 2019-06-17 18:27 | PN ---
Progress Note, Physician History of Present Illness: Afebrile, POD#[address] Chong, tolerating meals. - Current Medication List Current Medications: Active Medications Acetaminophen (Tylenol -) 650 mg PO Q6H PRN PRN Reason: PAIN LEVEL 1-5 Docusate Sodium (Colace -) 100 mg PO BID [facility] Last Admin: 06/17/19 11:19 Dose: 100 mg Enoxaparin Sodium (Lovenox -) 40 mg SQ DAILY [facility] Piperacillin Sod/Tazobactam (Sod 4.5 gm/ Dextrose) 100 mls @ 200 mls/hr IVPB Q8H-IV MARTINA; Protocol Last Admin: 06/17/19 17:45 Dose: 200 mls/hr Levothyroxine Sodium (Synthroid -) 88 mcg PO AM [facility] Last Admin: 06/17/19 06:44 Dose: 88 mcg Metoprolol Succinate (Toprol Xl -) 25 mg PO DAILY [facility] Last Admin: 06/17/19 11:19 Dose: 25 mg Ondansetron HCl (Zofran Injection) 4 mg IVPUSH Q6H PRN PRN Reason: NAUSEA AND/OR VOMITING Last Admin: 06/16/19 20:50 Dose: 4 mg Oxycodone HCl (Roxicodone -) 5 mg PO Q6H PRN PRN Reason: PAIN LEVEL 7 - 10 Polyethylene Glycol (Miralax (For Daily Use) -) 17 gm PO DAILY PRN PRN Reason: CONSTIPATION Ranolazine (Ranexa -) 500 mg PO BID [facility] Last Admin: 06/17/19 11:19 Dose: 500 mg Ursodiol (Actigal -) 300 mg PO BID [facility] Last Admin: 06/17/19 11:19 Dose: 300 mg - Objective Vital Signs: Vital Signs Temperature 99.4 F 06/17/19 14:00 Pulse Rate 65 06/17/19 14:00 Respiratory Rate 20 06/17/19 14:00 Blood Pressure 142/52 L 06/17/19 14:00 O2 Sat by Pulse Oximetry (%) 96 06/16/19 21:00 Constitutional: Yes: No Distress, Calm Neck: Yes: Supple Cardiovascular: Yes: Regular Rate and Rhythm Respiratory: Yes: Regular, CTA Bilaterally Gastrointestinal: Yes: Normal Bowel Sounds, Soft, Abdomen, Obese Edema: No Labs: CBC, BMP 06/17/19 08:45 06/17/19 08:45 INR, PTT INR 1.14 (0.83-1.09) H 06/12/19 07:50 Problem List - Problems (1) Cholangitis due to bile duct calculus with obstruction Code(s): K80.31 - CALCULUS OF BILE DUCT W CHOLANGITIS, UNSP, WITH OBSTRUCTION (2) Cholelithiasis Code(s): K80.20 - CALCULUS OF GALLBLADDER W/O CHOLECYSTITIS W/O OBSTRUCTION Qualifiers: Cholelithiasis location: gallbladder and bile duct Cholecystitis presence: without cholecystitis Biliary obstruction: with biliary obstruction Qualified Code(s): K80.71 - Calculus of gallbladder and bile duct without cholecystitis with obstruction (3) Gram-negative bacteremia Code(s): R78.81 - BACTEREMIA (4) CAD (coronary artery disease) Code(s): I25.10 - ATHSCL HEART DISEASE OF [place] CORONARY ARTERY W/O ANG PCTRS Qualifiers: Coronary Disease-Associated Artery/Lesion type: bypass graft [place] vs. transplanted heart: [place] heart Associated angina: without angina Qualified Code(s): I25.810 - Atherosclerosis of coronary artery bypass graft(s) without angina pectoris (5) HTN (hypertension) Code(s): I10 - ESSENTIAL (PRIMARY) HYPERTENSION Qualifiers: Hypertension type: essential hypertension Qualified Code(s): I10 - Essential (primary) hypertension (6) Hx of CABG Code(s): Z95.1 - PRESENCE OF AORTOCORONARY BYPASS GRAFT (7) Hyperlipidemia Code(s): E78.5 - HYPERLIPIDEMIA, UNSPECIFIED Qualifiers: Hyperlipidemia type: pure hypercholesterolemia Qualified Code(s): E78.00 - Pure hypercholesterolemia, unspecified; E78.0 - Pure hypercholesterolemia (8) Hypothyroid Code(s): E03.9 - HYPOTHYROIDISM, UNSPECIFIED Qualifiers: Hypothyroidism type: unspecified Qualified Code(s): E03.9 - Hypothyroidism , unspecified (9) S/P cholecystectomy Code(s): Z90.49 - ACQUIRED ABSENCE OF OTHER SPECIFIED PARTS OF DIGESTIVE TRACT Assessment/Plan 06/10/2019 MRCP: Choledocholithiasis with CBD dilatation up to 9 mm, no cholecystitis 08/18/2018 Echo: Normal LV size and fxn with abnl LV compliance, mild MR, CT, TR 08/19/2018 Lexiscan Myoview: No ischemia, LVEF 70% 1. Acute ascending cholangitis due to obstructing choledocholithasis, biliary sepsis and Klebsiella bacteremia s/p ERCP, stone removal, sphincterotomy and stent implantation improving 2. POD#1 lap cholecystectomy for cholelithiasis 3. CAD s/p CABG/?chronic stable angina 4. Diastolic dysfunction, euvolemic 5. HTN heart disease 6. HLD 7. Hypothyroidism P:1. Continue Zosyn course per C&S, monitor for post-ERCP pancreatitis, eventual biliary stent and residual stone fragment removal on ursodiol 2. Advancing diet as tolerated 3. Hold Lipitor pending resolution of abnl LFTs, continue Toprol XL 25 qd, Zetia 10 qd, Ranexa 500 bid, resume ASA 81 qd once post-op hemostasis assured 4. DVT prophylaxis
[2019-06-18] MEDS ORDERED: PIPERACILLIN/TAZOBACTAM 4.5 GM VIAL IVPB ONE ×3 (00:58→18:39)
[2019-06-18] MEDS ORDERED: DEXTROSE 5%-WATER 100 ML IVPB ONE ×3 (00:59→18:39)
[2019-06-18] MEDS: PIPERACILLIN/TAZOB 4.5 GM 4.5 GM in DEXTROSE 5%-WATER 100 ML IVPB SCH ×3 (02:50→18:52)
[2019-06-18] MEDS: LEVOTHYROXINE NA 88 MCG TABLET (FP) PO SCH (06:34)
--- NOTE | 2019-06-18 08:52 | PN ---
Progress Note (short form) - Note Progress Note: POD #2 Alert. Sitting in bed. C/o mild incisional tenderness. Adequate pain control with meds ordered. He states he is OOB ambulating unassisted. Voiding spontaneously. Tolerating PO diet. Denies n/v/f/c, CP, palpitations, SOB or BETANCUR. Last Vital Signs Temp Pulse Resp BP Pulse Ox 98.5 F 61 20 150/67 96 06/18/ 06:00 06/18/19 06:00 06/18/19 06:00 06/18/19 06:00 06/17/19 21:00 Gen: nad ABD: obese habitus. all surgical ports c/d/i. ANGELA 50mL serous. LE: soft. nt bilat. Problem List - Problems (1) Cholangitis due to bile duct calculus with obstruction Assessment/Plan: POD #2 s/p Lap pinky ANGELA removed while on rounds. Cont Medical management No further surgical intervention. See DISCHARGE PLANNING for Dr. Chong f/u instructions etc. On behalf of Dr. Chong, thank you for the opportunity to participate in your patient's care. Code(s): K80.31 - CALCULUS OF BILE DUCT W CHOLANGITIS, UNSP, WITH OBSTRUCTION (2) S/P cholecystectomy Code(s): Z90.49 - ACQUIRED ABSENCE OF OTHER SPECIFIED PARTS OF DIGESTIVE TRACT (3) HTN (hypertension) Code(s): I10 - ESSENTIAL (PRIMARY) HYPERTENSION Qualifiers: Hypertension type: essential hypertension Qualified Code(s): I10 - Essential (primary) hypertension (4) Hyperlipidemia Code(s): E78.5 - HYPERLIPIDEMIA, UNSPECIFIED Qualifiers: Hyperlipidemia type: pure hypercholesterolemia Qualified Code(s): E78.00 - Pure hypercholesterolemia, unspecified; E78.0 - Pure hypercholesterolemia (5) Hypothyroid Code(s): E03.9 - HYPOTHYROIDISM, UNSPECIFIED Qualifiers: Hypothyroidism type: unspecified Qualified Code(s): E03.9 - Hypothyroidism , unspecified
[2019-06-18 09:38] LABS: HEMATOCRIT 35.5 % (35.4-49); HEMOGLOBIN 12.1 GM/dL (11.7-16.9); MCH 33.6 pg (25.7-33.7); MCHC 34.2 g/dl (32.0-35.9); MEAN CELL VOLUME 98.2 fl (80-96); RBC 3.61 M/mm3 (4.00-5.60)
[2019-06-18 10:20] LABS: ALBUMIN 2.6 g/dl (3.4-5.0); BILIRUBIN,DIRECT 0.2 mg/dL (0.0-0.2); BILIRUBIN,TOTAL 0.6 mg/dL (0.2-1); BLOOD UREA NITROGEN 17.9 mg/dL (7-18); CREATININE 0.9 mg/dL (0.55-1.3); TOT PROT 6.4 g/dl (6.4-8.2)
[2019-06-18] MEDS: metoPROLOL SUCCINATE 25 MG TAB.SR.24H (FP) PO SCH (11:21)
[2019-06-18] MEDS: URSODIOL 300 MG CAPSULE PO SCH ×2 (11:21→21:39)
[2019-06-18] MEDS: ENOXAPARIN NA (PORCINE) 40 MG/0.4 ML DISP.SYRIN SQ SCH (11:21)
[2019-06-18] MEDS: DOCUSATE SODIUM 100 MG CAPSULE (FP) PO SCH ×2 (11:22→21:39)
[2019-06-18] MEDS: RANOLAZINE E.R. 500 MG TABLET (FP) PO SCH ×2 (11:22→21:39)
--- NOTE | 2019-06-18 12:47 | PN ---
Progress Note, Physician History of Present Illness: Afebrile, POD#2 lap cholecystectomy, drain d/allan, tolerating meals. - Current Medication List Current Medications: Active Medications Acetaminophen (Tylenol -) 650 mg PO Q6H PRN PRN Reason: PAIN LEVEL 1-5 Docusate Sodium (Colace -) 100 mg PO BID [facility] Last Admin: 06/18/19 11:22 Dose: 100 mg Enoxaparin Sodium (Lovenox -) 40 mg SQ DAILY [facility] Last Admin: 06/18/19 11:21 Dose: 40 mg Piperacillin Sod/Tazobactam (Sod 4.5 gm/ Dextrose) 100 mls @ 200 mls/hr IVPB Q8H-IV [facility]; Protocol Last Admin: 06/18/19 11:22 Dose: 200 mls/hr Levothyroxine Sodium (Synthroid -) 88 mcg PO AM [facility] Last Admin: 06/18/19 06:34 Dose: 88 mcg Metoprolol Succinate (Toprol Xl -) 25 mg PO DAILY [facility] Last Admin: 06/18/19 11:21 Dose: 25 mg Ondansetron HCl (Zofran Injection) 4 mg IVPUSH Q6H PRN PRN Reason: NAUSEA AND/OR VOMITING Last Admin: 06/16/19 20:50 Dose: 4 mg Oxycodone HCl (Roxicodone -) 5 mg PO Q6H PRN PRN Reason: PAIN LEVEL 7 - 10 Polyethylene Glycol (Miralax (For Daily Use) -) 17 gm PO DAILY PRN PRN Reason: CONSTIPATION Ranolazine (Ranexa -) 500 mg PO BID [facility] Last Admin: 06/18/19 11:22 Dose: 500 mg Ursodiol (Actigal -) 300 mg PO BID [facility] Last Admin: 06/18/19 11:21 Dose: 300 mg - Objective Vital Signs: Vital Signs Temperature 98.7 F 06/18/19 10:00 Pulse Rate 77 06/18/19 10:00 Respiratory Rate 18 06/18/19 10:00 Blood Pressure 147/75 06/18/19 10:00 O2 Sat by Pulse Oximetry (%) 96 06/17/19 21:00 Constitutional: Yes: No Distress, Calm Neck: Yes: Supple Cardiovascular: Yes: Regular Rate and Rhythm Respiratory: Yes: Regular, CTA Bilaterally Gastrointestinal: Yes: Normal Bowel Sounds, Soft Edema: No Labs: CBC, BMP 06/18/19 08:49 06/18/19 08:49 INR, PTT INR 1.14 (0.83-1.09) H 06/12/19 07:50 Problem List - Problems (1) Cholangitis due to bile duct calculus with obstruction Code(s): K80.31 - CALCULUS OF BILE DUCT W CHOLANGITIS, UNSP, WITH OBSTRUCTION (2) Cholelithiasis Code(s): K80.20 - CALCULUS OF GALLBLADDER W/O CHOLECYSTITIS W/O OBSTRUCTION Qualifiers: Cholelithiasis location: gallbladder and bile duct Cholecystitis presence: without cholecystitis Biliary obstruction: with biliary obstruction Qualified Code(s): K80.71 - Calculus of gallbladder and bile duct without cholecystitis with obstruction (3) Gram-negative bacteremia Code(s): R78.81 - BACTEREMIA (4) CAD (coronary artery disease) Code(s): I25.10 - ATHSCL HEART DISEASE OF [place] CORONARY ARTERY W/O ANG PCTRS Qualifiers: Coronary Disease-Associated Artery/Lesion type: bypass graft [place] vs. transplanted heart: [place] heart Associated angina: without angina Qualified Code(s): I25.810 - Atherosclerosis of coronary artery bypass graft(s) without angina pectoris (5) HTN (hypertension) Code(s): I10 - ESSENTIAL (PRIMARY) HYPERTENSION Qualifiers: Hypertension type: essential hypertension Qualified Code(s): I10 - Essential (primary) hypertension (6) Hx of CABG Code(s): Z95.1 - PRESENCE OF AORTOCORONARY BYPASS GRAFT (7) Hyperlipidemia Code(s): E78.5 - HYPERLIPIDEMIA, UNSPECIFIED Qualifiers: Hyperlipidemia type: pure hypercholesterolemia Qualified Code(s): E78.00 - Pure hypercholesterolemia, unspecified; E78.0 - Pure hypercholesterolemia (8) Hypothyroid Code(s): E03.9 - HYPOTHYROIDISM, UNSPECIFIED Qualifiers: Hypothyroidism type: unspecified Qualified Code(s): E03.9 - Hypothyroidism , unspecified (9) S/P cholecystectomy Code(s): Z90.49 - ACQUIRED ABSENCE OF OTHER SPECIFIED PARTS OF DIGESTIVE TRACT Assessment/Plan 06/10/2019 MRCP: Choledocholithiasis with CBD dilatation up to 9 mm, no cholecystitis 08/18/2018 Echo: Normal LV size and fxn with abnl LV compliance, mild MR, [place], TR 08/19/2018 Lexiscan Myoview: No ischemia, LVEF 70% 1. Acute ascending cholangitis due to obstructing choledocholithasis, biliary sepsis and Klebsiella bacteremia s/p ERCP, stone removal, sphincterotomy and stent implantation improving 2. POD#2 lap cholecystectomy for cholelithiasis 3. CAD s/p CABG/?chronic stable angina 4. Diastolic dysfunction, euvolemic 5. HTN heart disease 6. HLD 7. Hypothyroidism P:1. Continue Zosyn course per C&S, monitor WBC, eventual biliary stent and residual stone fragment removal on ursodiol 2. Advancing diet as tolerated 3. Hold Lipitor pending resolution of abnl LFTs, continue Toprol XL 25 qd, Zetia 10 qd, Ranexa 500 bid, resume ASA 81 qd once post-op hemostasis assured 4. DVT prophylaxis
--- NOTE | 2019-06-18 13:28 | OP ---
DATE OF OPERATION: 06/16/2019 PREOPERATIVE DIAGNOSIS: Cholelithiasis, choledocholithiasis and cholangitis. POSTOPERATIVE DIAGNOSIS: Cholelithiasis, choledocholithiasis and cholangitis. PROCEDURE: Laparoscopic cholecystectomy. SURGEON: Ulises Chong MD [employer] HELPER: Kristi Weathers PA-C ANESTHESIA: General. OPERATIVE FINDINGS: There was an edematous gallbladder and cholelithiasis present. There were minimal adhesions of the omentum to the gallbladder. The rest of the findings were unremarkable. PROCEDURE: The patient was placed on the operating table in the supine position and after the induction of general anesthesia the patient's abdomen was prepped with ChloraPrep and draped in sterile fashion. A timeout was taken and pneumoperitoneum established above the umbilicus using a Veress needle. Once 15 mmHg of pressure were obtained, a 5-mm port was placed at the umbilicus and additional lateral 5-mm ports and a subxiphoid 12-mm port. Laparoscopy was carried out and the previously noted findings were observed. Dissection was begun at the neck of the gallbladder where the peritoneum was opened medially and laterally using blunt dissection and electrocautery. The cystic duct was identified coursing from the neck of the gallbladder towards the common bile duct and it was dissected using blunt dissection proximally and distally for length. Similarly, the artery was identified and dissected proximally and distally for length. A critical view of safety was taken and then the duct and the artery were clipped twice proximally and twice distally with large hemoclips. The duct and artery were then serially divided using Endoshears. Hemostasis was checked for and noted to be good and then the gallbladder was removed from the liver bed in a retrograde fashion using electrocautery. Prior to removal from the edge of the liver, hemostasis in the liver bed was again checked for and noted to be good and then the gallbladder removed from the edge of the liver, placed in an EndoCatch , and brought out through the subxiphoid port. Pneumoperitoneum was reestablished. Copious irrigation was carried out with saline. Hemostasis was verified again. A 10-mm Hamilton-Vieira drain was placed in the right hepatorenal fossa and brought out through 1 of the 5-mm ports and secured to the skin with 2-0 silk suture. All port sites were removed under laparoscopic vision without evidence of bleeding from the port sites. The port sites were infiltrated with 0.5% Marcaine and the skin edges reapproximated with 4-0 Biosyn in a subcuticular continuous fashion. Steri-Strips and Band-Aid dressings were placed. The drain was connected to bulb suction and then the patient aroused from general anesthesia and transferred to the postanesthesia care unit in stable condition, awake and alert. ESTIMATED BLOOD LOSS: 100 mL. REPLACEMENT: Crystalloid. DRAINS: One 10-mm Hamilton-Vieira. SPECIMEN: Gallbladder and contents to Pathology. I, Ulises Chong, was physically present in the operating room from the time the patient was placed on the operating table until he was transferred to the postanesthesia care unit in [facility]. MD GUMARO Bolton/[id number] MTDD
[2019-06-18 14:49] LABS: ANISOCYTOSIS 2+; MACROCYTOSIS 0; OVALOCYTE 1+; PLATELET ESTIMATE NORMAL; TEAR DROP CELLS 1+
--- NOTE | 2019-06-18 15:01 | PN ---
Physical Exam: SUBJECTIVE: Patient seen and examined. He has no complaints. He is tolerating diet and denies abdominal pain, nausea. OBJECTIVE: Vital Signs Period Temp Pulse Resp BP Sys/Quinn Pulse Ox Last 24 Hr 98.2 F-98.8 F 61-77 18-20 120-150/52-75 96 GENERAL: The patient is awake, alert, and fully oriented, in no acute distress. LUNGS: Breath sounds equal, clear to auscultation bilaterally, no wheezes, no crackles, no accessory muscle use. HEART: Regular rate and rhythm, S1, S2 without murmur, rub or gallop. ABDOMEN: Obese, soft, nontender, nondistended, normoactive bowel sounds, no guarding, no rebound, no hepatosplenomegaly, no masses. EXTREMITIES: 2+ pulses, warm, well-perfused, no edema. Laboratory Results - last 24 hr 06/18/19 06/18/19 08:49 08:49 WBC 16.0 H RBC 3.61 L Hgb 12.1 Hct 35.5 MCV 98.2 H MCH 33.6 MCHC 34.2 RDW 13.0 Plt Count No Result Required. Neutrophils % No Result Required. Lymphocytes % No Result Required. Nucleated RBC % 0 Sodium 141 Potassium 4.0 Chloride 106 Carbon Dioxide 28 Anion Gap 7 L BUN 17.9 Creatinine 0.9 Est GFR (CKD-EPI)AfAm 90.58 Est GFR (CKD-EPI)NonAf 78.15 Random Glucose 84 Calcium 9.0 Total Bilirubin 0.6 Direct Bilirubin 0.2 AST 37 ALT 51 Alkaline Phosphatase 73 Total Protein 6.4 Albumin 2.6 L Active Medications Generic Name Dose Route Start Last Admin Trade Name Freq PRN Reason Stop Dose Admin Acetaminophen 650 mg 06/17/19 11:16 Tylenol - PO Q6H PRN PAIN LEVEL 1-5 Docusate Sodium 100 mg 06/16/19 22:00 06/18/19 11:22 Colace - PO 100 mg BID MARTINA Administration Enoxaparin Sodium 40 mg 06/18/19 10:00 06/18/19 11:21 Lovenox - SQ 40 mg DAILY MARTINA Administration Piperacillin Sod/Tazobactam 100 mls @ 200 mls/hr 06/16/19 18:00 06/18/19 11: 22 Sod 4.5 gm/ Dextrose IVPB 200 mls/hr Q8H-IV MARTINA Administration Protocol Levothyroxine Sodium 88 mcg 06/17/19 07:00 06/18/19 06:34 Synthroid - PO 88 mcg AM MARTINA Administration Metoprolol Succinate 25 mg 06/17/19 10:00 06/18/19 11:21 Toprol Xl - PO 25 mg DAILY MARTINA Administration Ondansetron HCl 4 mg 06/16/19 16:59 06/16/19 20:50 Zofran Injection IVPUSH 4 mg Q6H PRN Administration NAUSEA AND/OR VOMITING Oxycodone HCl 5 mg 06/17/19 11:16 Roxicodone - PO Q6H PRN PAIN LEVEL 7 - 10 Polyethylene Glycol 17 gm 06/16/19 16:59 Miralax (For Daily Use) - PO DAILY PRN CONSTIPATION Ranolazine 500 mg 06/16/19 22:00 06/18/19 11:22 Ranexa - PO 500 mg BID MARTINA Administration Ursodiol 300 mg 06/16/19 22:00 06/18/19 11:21 Actigal - PO 300 mg BID MARTINA Administration ASSESSMENT/PLAN: This is an 84 year old man with a history of CAD, CABG, HTN, hyperlipidemia, hypothyroidism, chronic low back pain who presented to the ED with fever, chills , abdominal pain. 1. Sepsis secondary to acute cholangitis, choledocholithiasis, Klebsiella bacteremia 2. CAD, history of CABG 3. HTN 4. Hyperlipidemia 5. Hypothyroidism 6. Chronic low back pain 7. Obesity with BMI 32.9 Plan: s/p lap CCY with ANGELA drain 06/16. Doing well Discussed with Dr. Chong, advance to regular diet. OOB, Incentive spirometry. GI input appreciated. LFTs normalized. Outpatient ERCP in 3 months for stent removal and possible residual stone fragment removal outpatient. Started on ursodiol. Cardiology input noted. dc morphine. oxycodone/tylenol prn for pain. Zosyn, continue for now, ID input noted. LFTs normalized. Resume ASA per surgery. resume statin on dc. Continue metoprolol/ranexa/levothyroxine DVTPPX lovenox PT eval noted dispo dc home services in 24-48 hours if pending clinical improvement and drain output. Discussed with patient and nursing in detail, all questions answered.
--- NOTE | 2019-06-18 17:33 | PN ---
Progress Note (short form) - Note Progress Note: feels well drain removed today no diarrhea +BM eating well Vital Signs Period Temp Pulse Resp BP Sys/Quinn Pulse Ox Last 24 Hr 98.2 F-98.9 F 61-77 18-20 120-150/52-75 96 cor-rrr lungs clear abd soft,nt ext no edema no phlebitis CBC, BMP 06/18/19 08:49 06/18/19 08:49 Microbiology 06/15/19 15:05 Blood - Peripheral Venous Blood Culture - Preliminary NO GROWTH OBTAINED AFTER 72 HOURS, INCUBATION TO CONTINUE FOR 2 DAYS. 06/15/19 15:30 Blood - Peripheral Venous Blood Culture - Preliminary NO GROWTH OBTAINED AFTER 72 HOURS, INCUBATION TO CONTINUE FOR 2 DAYS. 06/11/19 10:30 Blood - Peripheral Venous Blood Culture - Final NO GROWTH AFTER 5 DAYS INCUBATION 06/11/19 10:30 Blood - Peripheral Venous Blood Culture - Final Klebsiella Pneumoniae 06/11/19 11:20 Urine - Urine Clean Catch Urine Culture - Final NO GROWTH OBTAINED a/p s/p lap choly-06/16 klebsiella bacteremia secondary to choledocholithiasis- s/p ercp and stent-lfts now normal day #7 zosyn repeat cbc in am if normal can d/c zosyn in am CAD s/p CABG Problem List - Problems (1) Gram-negative bacteremia Code(s): R78.81 - BACTEREMIA (2) Cholangitis due to bile duct calculus with obstruction Code(s): K80.31 - CALCULUS OF BILE DUCT W CHOLANGITIS, UNSP, WITH OBSTRUCTION (3) CAD (coronary artery disease) Code(s): I25.10 - ATHSCL HEART DISEASE OF [place] CORONARY ARTERY W/O ANG PCTRS Qualifiers: Coronary Disease-Associated Artery/Lesion type: bypass graft [place] vs. transplanted heart: [place] heart Associated angina: without angina Qualified Code(s): I25.810 - Atherosclerosis of coronary artery bypass graft(s) without angina pectoris
[2019-06-19] MEDS ORDERED: PIPERACILLIN/TAZOBACTAM 4.5 GM VIAL IVPB ONE ×2 (00:20→09:24)
[2019-06-19] MEDS ORDERED: DEXTROSE 5%-WATER 100 ML IVPB ONE ×2 (00:20→09:24)
[2019-06-19] MEDS: PIPERACILLIN/TAZOB 4.5 GM 4.5 GM in DEXTROSE 5%-WATER 100 ML IVPB SCH (01:34)
[2019-06-19] MEDS: LEVOTHYROXINE NA 88 MCG TABLET (FP) PO SCH (06:05)
[2019-06-19 08:32] LABS: BASO % 0.7 % (0-2.0); EOS % 2.9 % (0-4.5); HEMATOCRIT 35.6 % (35.4-49); HEMOGLOBIN 12.5 GM/dL (11.7-16.9); LYMPH % 19.3 % (8-40); MCH 33.8 pg (25.7-33.7); MEAN CELL VOLUME 96.6 fl (80-96); MEAN PLT VOLUME 8.2 fl (7.5-11.1); MONO % 6.9 % (3.8-10.2); NEUT % 70.2 % (42.8-82.8); PLATELET COUNT 258 K/MM3 (134-434); RBC 3.69 M/mm3 (4.00-5.60); RDW 12.8 % (11.9-15.9); WHITE BLOOD COUNT 8.6 K/mm3 (4.0-10.0)
[2019-06-19 09:01] LABS: BLOOD UREA NITROGEN 16.6 mg/dL (7-18); CALCIUM 9.1 mg/dL (8.5-10.1); CREATININE 1.1 mg/dL (0.55-1.3); POTASSIUM 3.9 mmol/L (3.5-5.1)
[2019-06-19 09:22] VITALS: BP 110/72; PULSE 84; TEMP 98.3
[2019-06-19] MEDS: metoPROLOL SUCCINATE 25 MG TAB.SR.24H (FP) PO SCH (09:28)
[2019-06-19] MEDS: URSODIOL 300 MG CAPSULE PO SCH (09:28)
[2019-06-19] MEDS: RANOLAZINE E.R. 500 MG TABLET (FP) PO SCH (09:30)
[2019-06-19] MEDS: DOCUSATE SODIUM 100 MG CAPSULE (FP) PO SCH (09:30)
[2019-06-19] MEDS: ENOXAPARIN NA (PORCINE) 40 MG/0.4 ML DISP.SYRIN SQ SCH (10:39)
--- NOTE | 2019-06-19 11:02 | DS ---
Physical Exam: SUBJECTIVE: Patient seen and examined. He has no complaints. OBJECTIVE: Vital Signs Period Temp Pulse Resp BP Sys/Quinn Pulse Ox Last 24 Hr 98.3 F-99.5 F 65-84 18-18 110-147/52-72 96 PHYSICAL EXAM GENERAL: The patient is awake, alert, and fully oriented, in no acute distress. LUNGS: Breath sounds equal, clear to auscultation bilaterally, no wheezes, no crackles, no accessory muscle use. HEART: Regular rate and rhythm, S1, S2 without murmur, rub or gallop. ABDOMEN: Obese, soft, nontender, nondistended, normoactive bowel sounds, no guarding, no rebound, no hepatosplenomegaly, no masses. EXTREMITIES: 2+ pulses, warm, well-perfused, no edema. LABS Laboratory Results - last 24 hr 06/18/19 06/19/19 06/19/19 08:49 07:35 07:35 WBC 8.6 RBC 3.69 L Hgb 12.5 Hct 35.6 MCV 96.6 H MCH 33.8 H MCHC 35.0 RDW 12.8 Plt Count 258 D MPV 8.2 Absolute Neuts (auto) 6.1 Neutrophils % 70.2 Neutrophils % (Manual) 70.0 Band Neutrophils % 3.0 Lymphocytes % 19.3 D Lymphocytes % (Manual) 18.0 Monocytes % 6.9 Monocytes % (Manual) 3 L Eosinophils % 2.9 D Eosinophils % (Manual) 0.0 Basophils % 0.7 D Basophils % (Manual) 0.0 Myelocytes % (Man) 0 Promyelocytes % (Man) 0 Blast Cells % (Manual) 0 Nucleated RBC % 0 Metamyelocytes 0 Hypochromia 0 Platelet Estimate Normal Platelet Comment Present Polychromasia 1+ Poikilocytosis 1+ Anisocytosis 2+ Microcytosis 2+ Macrocytosis 0 Spherocytes 1+ Tear Drop Cells 1+ Ovalocytes 1+ Melany Cells 1+ Sodium 139 Potassium 3.9 Chloride 102 Carbon Dioxide 30 Anion Gap 7 L BUN 16.6 Creatinine 1.1 Est GFR (CKD-EPI)AfAm 71.07 Est GFR (CKD-EPI)NonAf 61.32 Random Glucose 100 Calcium 9.1 HOSPITAL COURSE: Date of Admission:06/11/19 Date of Discharge: 06/19/19 Minutes to complete discharge: 45 Discharge Summary Reason For Visit: COMMON BILE DUCT CALCULUS,SEPSIS Current Active Problems Bacteremia due to Klebsiella pneumoniae (Acute) Low back pain (Chronic) Obesity (BMI 30.0-34.9) (Chronic) Hyperlipidemia (Chronic) Hypothyroid (Chronic) Hx of CABG (Chronic) HTN (hypertension) (Chronic) CAD (coronary artery disease) (Chronic) Sepsis (Acute) Cholangitis due to bile duct calculus with obstruction (Acute) Cholelithiasis (Acute) Gram-negative bacteremia (Acute) S/P cholecystectomy (Acute) Condition: Improved - Instructions Diet, Activity, Other Instructions: Pancreatic neck cyst follow up Dr. Chong Discharge Instructions Dear SUNG RUIZ, Post Operative Instructions Physical activity Resume your normal everyday activity as tolerated no heavy lifting or exercise until seen by your surgeon. You may walk unlimited amounts of and climb stairs. You may resume driving the car when you feel safe and comfortable behind the wheel and are no longer taking narcotic pain medications. Wound care If you have a bandage, leave it on, and keep dry for 48 - 72 hours. After that time discard the outer bandage. If there are tapes on the skin under the outer bandage, leave them in place. They will peel off in the next 7 to 10 days. Do Not peel them off. You may shower 24 hours after the drain site is closed. If there are tapes present on the skin, they can get wet. Diet There are no dietary restrictions. Eat healthy, high-fiber foods. Drink 6 to 8 glasses of liquid each day. This will assist in keeping your bowels are regular. Pain management You may take Tylenol or acetaminophen or Ibuprofen (for example, Motrin, Advil etc.) Any pain prescription medication ordered should be taken as prescribed for moderate to severe pain. Call Dr. Chong for any of the following: Severe pain not relieved by medication Fever of 101 or higher Excessive bleeding or drainage on dressing Inability to urinate Call the office at [phone] for a post operative appointment in 7 - 10 days. Referrals: Ulises Chong MD [Staff Physician] - 1 Week Paras Harman MD [Primary Care Provider] - 1 Week Stoney Heath MD [Staff Physician] - 2 Weeks Disposition: HOME - Home Medications Comprehensive Discharge Medication List: Ambulatory Orders Atorvastatin Ca [Lipitor] 80 mg PO HS 04/24/14 Ezetimibe [Zetia] 10 mg PO DAILY 04/24/14 Metoprolol Succinate [Toprol XL -] 25 mg PO DAILY 04/24/14 Aspirin [Ecotrin] 81 mg PO DAILY 07/03/16 Ranolazine [Ranexa -] 500 mg PO BID 06/11/19 Levothyroxine [Synthroid -] 88 mcg PO AM tablet 06/19/19 Ursodiol [Actigal -] 300 mg PO BID #60 capsule 06/19/19 This patient is new to me today: No Emergency Visit: Yes ED Registration Date: 06/11/19 Care time: The patient presented to the Emergency Department on the above date and was hospitalized for further evaluation of their emergent condition. Critical Care patient: No - Discharge Referral Referred to [facility] Med P.C.: No
--- NOTE | 2019-06-23 09:34 | EKG ---
Test Reason : Blood Pressure : / mmHG Vent. Rate : 081 BPM Atrial Rate : 081 BPM P-R Int : 138 ms QRS Dur : 082 ms QT Int : 374 ms P-R-T Axes : 018 -04 067 degrees QTc Int : 434 ms NORMAL SINUS RHYTHM NORMAL ECG Confirmed by Lobo Bergman MD ([id number]) on 06/23/2019 9:33:54 AM Referred By: Confirmed By:Lobo Bergman MD
== END 2019-06-19 11:47 | disposition home or self-care (01) | DRG 854 ==
LOC: JER 09:39 → JERBED 11:06 → J5S 20:36
PROVIDERS: ADMIT Hospitalist; ATTEND Internal Medicine
PROC: 0FC98ZZ Extirpation of Matter from Common Bile Duct, Via Natural or Artificial Opening Endoscopic (ICD-10-PCS; 2019-06-12)
PROC: 0F798DZ Dilation of Common Bile Duct with Intraluminal Device, Via Natural or Artificial Opening Endoscopic (ICD-10-PCS; 2019-06-16)
PROC: 0FT44ZZ Resection of Gallbladder, Percutaneous Endoscopic Approach (ICD-10-PCS; principal; 2019-06-16 12:30)
DX: A41.59 Other Gram-negative sepsis (principal); K80.33 Calculus of bile duct with acute cholangitis with obstruction; I25.10 Atherosclerotic heart disease of native coronary artery without angina pectoris; E78.5 Hyperlipidemia, unspecified; E03.9 Hypothyroidism, unspecified; K57.90 Diverticulosis of intestine, part unspecified, without perforation or abscess without bleeding; I11.9 Hypertensive heart disease without heart failure; R10.9 Unspecified abdominal pain; D72.829 Elevated white blood cell count, unspecified; M54.5 Low back pain; R74.8 Abnormal levels of other serum enzymes; B96.1 Klebsiella pneumoniae [K. pneumoniae] as the cause of diseases classified elsewhere; E66.8 Other obesity; Z68.32 Body mass index [BMI] 32.0-32.9, adult; Z95.1 Presence of aortocoronary bypass graft; Z95.5 Presence of coronary angioplasty implant and graft
CPT/HCPCS: 36415; 71045-TC-FY; 74177-TC; 74181-TC; 76000-TC-FY; 76705-TC; 80048; 80053; 80076; 81003; 82150; 82248; 82550; 82803; 83605; 83690; 83735; 84100; 84484; 85025; 85610; 85730; 86140; 87040; 87086; 87186; 88304-TC; 93005; 93010; 94010; 94760; 97116-GP; 97161-GP; 99284-25; J0131; J7030

== ENCOUNTER 2019-06-22 10:39 | Emergency (ER) | payer OTHER ==
[2019-06-22 10:44] VITALS: BP 159/70; PULSE 93; TEMP 98.4; BMI 32.4
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
[2019-06-22] MEDS ORDERED: ACETAMINOPHEN 1000 MG/100 ML VIAL (NON FORMULARY) IVPB ONE (11:48)
[2019-06-22 12:44] LABS: BASO % 0.7 % (0-2.0); EOS % 1.1 % (0-4.5); HEMATOCRIT 34.1 % (35.4-49); HEMOGLOBIN 11.6 GM/dL (11.7-16.9); LYMPH % 14.3 % (8-40); MCH 33.2 pg (25.7-33.7); MCHC 34.1 g/dl (32.0-35.9); MEAN CELL VOLUME 97.3 fl (80-96); MEAN PLT VOLUME 8.3 fl (7.5-11.1); MONO % 6.7 % (3.8-10.2); NEUT % 77.2 % (42.8-82.8); PLATELET COUNT 316 K/MM3 (134-434); WHITE BLOOD COUNT 8.7 K/mm3 (4.0-10.0)
--- NOTE | 2019-06-22 12:50 | EKG ---
Test Reason : Blood Pressure : / mmHG Vent. Rate : 098 BPM Atrial Rate : 098 BPM P-R Int : 130 ms QRS Dur : 078 ms QT Int : 352 ms P-R-T Axes : 026 013 054 degrees QTc Int : 449 ms SINUS RHYTHM OTHERWISE NORMAL ECG WHEN COMPARED WITH ECG OF 11-JUN-2019 14:01, NO SIGNIFICANT CHANGE WAS FOUND Confirmed by JULI MOFFETT MD ([id number]) on 06/22/2019 12:50:18 PM Referred By: Confirmed By:JULI MOFFETT MD
[2019-06-22 13:02] LABS: INR 1.27 (0.83-1.09)
[2019-06-22 13:11] LABS: LIPASE 814 U/L (73-393)
[2019-06-22 13:23] LABS: ALBUMIN 2.6 g/dl (3.4-5.0); BILIRUBIN,TOTAL 0.9 mg/dL (0.2-1); BLOOD UREA NITROGEN 14.1 mg/dL (7-18); CREATININE 0.9 mg/dL (0.55-1.3); POTASSIUM 4.1 mmol/L (3.5-5.1); TOT PROT 6.8 g/dl (6.4-8.2)
--- NOTE | 2019-06-22 13:28 | PDOC ---
Documentation entered by Sydney Grady SCRIBE, acting as scribe for Kalpana Meyer MD. Kalpana Meyer MD: This documentation has been prepared by the Miguel A kruse Xhesika, SCRIBE, under my direction and personally reviewed by me in its entirety. I confirm that the documentation accurately reflects all work, treatment, procedures, and medical decision making performed by me. Attending Attestation - Resident Resident Name: Christina Escobar - ED Attending Attestation I have performed the following: I have examined & evaluated the patient, The case was reviewed & discussed with the resident, I agree w/resident's findings & plan, Exceptions are as noted - HPI HPI: 06/22/19 12:37 The patient is a 84 year old male with a significant PMH of HTN, HLD, CAD s/p CABG who presents to the emergency department with 2 days of L shoulder pain. The patient was admitted here at [facility] 06/11-06/18 for Acute cholangitis with early sepsis, Choledocholithasis with obstruction, klebsiella and was started on 7 days of bactrim. The patient notes his L shoulder pain is focal, worsened with touching and movement. Daughter notes patients L hand is more swollen than his R hand. Patient had a stress test 01/12 which was normal. The patient denies chest pain, shortness of breath, headache and dizziness. Denies fever, chills, cough, nausea, vomiting, diarrhea and constipation. Denies dysuria, frequency, urgency and hematuria. Allergies: NKDA Past surgical history: Appendectomy, triple bypass PCP: Paras Morales - Physicial Exam PE: GENERAL: Awake, alert, and fully oriented, in no acute distress HEAD: No signs of trauma EYES: PERRLA, EOMI, sclera anicteric, conjunctiva clear ENT: Auricles normal inspection, hearing grossly normal, nares patent, oropharynx clear without exudates. Moist mucosa NECK: Normal ROM, supple, no lymphadenopathy, JVD, or masses LUNGS: Breath sounds equal, clear to auscultation bilaterally. No wheezes, and no crackles HEART: Regular rate and rhythm, normal S1 and S2, no murmurs, rubs or gallops ABDOMEN: Soft, nontender, normoactive bowel sounds. No guarding, no rebound. No masses EXTREMITIES: L shoulder with tenderness over the AC joint. No swelling, no redness, no warmth. Remainder of extremities with normal range of motion, no edema. No clubbing or cyanosis. No cords, erythema, or tenderness NEUROLOGICAL: Cranial nerves II through XII grossly intact. Normal speech. Motor and sensation intact SKIN: Warm, dry, normal turgor, no rashes or lesions noted. - Medical Decision Making Pt with point tenderness to AC joint, no signs of septic joint. Suspect MSK pain as it is pinpoint in location. Cardiac etiology is unlikely based on presentation. Will check labs (r/o cardiac etiology), XR (to evaluate the joint) , ultrasound (r/o DVT).
[2019-06-22] MEDS ORDERED: SODIUM CHLORIDE 1,000 ML IV STA (13:44)
[2019-06-22 13:53] LABS: MAGNESIUM 2.3 mg/dL (1.8-2.4)
== END 2019-06-22 16:30 | disposition home or self-care (01) ==
LOC: JER 10:39
DX: M25.512 Pain in left shoulder (principal); Z90.49 Acquired absence of other specified parts of digestive tract; Z98.890 Other specified postprocedural states; I25.10 Atherosclerotic heart disease of native coronary artery without angina pectoris; I10 Essential (primary) hypertension; Z95.1 Presence of aortocoronary bypass graft; Z95.5 Presence of coronary angioplasty implant and graft; E78.5 Hyperlipidemia, unspecified; E78.00 Pure hypercholesterolemia, unspecified; E03.9 Hypothyroidism, unspecified
CPT/HCPCS: 36415; 73030-TC-LT-FY; 80053; 82550; 83690; 83735; 84484; 85025; 85610; 93005; 93010; 93971; 99282-25

== ENCOUNTER 2019-08-31 07:02 | Day surgery (SDC) | payer OTHER ==
[2019-08-31 07:44] VITALS: BMI 32.1
[2019-08-31] MEDS ORDERED: CEFAZOLIN 1 GM/D5W 2 GM/100 ML BAG ONE (08:53)
[2019-08-31 09:23] VITALS: TEMP 97.8
[2019-08-31 10:17] VITALS: PULSE 58
[2019-08-31 11:03] VITALS: BP 147/60
--- NOTE | 2019-09-01 13:58 | PATH ---
Surgical Pathology Report Patient Name: SUNG RUIZ Med. Rec. #: [id number] /Age/Gender: 1935 (Age: 84) / M Account: [id number] Location: [facility]-ENDOSCOPY Taken: 08/31/2019 Received: 08/31/2019 Reported: 09/01/2019 Physicians: Stoney Heath M.D. Specimen(s) Received STENT Clinical History Removal of stent Final Diagnosis STENT, REMOVAL: CONSISTENT WITH BILIARY STENT. MACROSCOPIC DIAGNOSIS. Electronically Signed Yesenia Merino M.D. Gross Description Received fresh labeled "stent," is a 19 cm in length blue, coiled portion of tubing, consistent with a biliary stent. No soft tissue is present. No sections are submitted, gross only. /08/31/2019 [facility]08/31/2019
== END 2019-08-31 10:45 | disposition home or self-care (01) ==
LOC: JASU-ENDO 07:02
PROVIDERS: ATTEND Internal Medicine Gastroenterology
PROC: 0F798ZZ Dilation of Common Bile Duct, Via Natural or Artificial Opening Endoscopic (ICD-10-PCS; 2019-08-31)
PROC: 0FC98ZZ Extirpation of Matter from Common Bile Duct, Via Natural or Artificial Opening Endoscopic (ICD-10-PCS; 2019-08-31)
PROC: 0FPB8DZ Removal of Intraluminal Device from Hepatobiliary Duct, Via Natural or Artificial Opening Endoscopic (ICD-10-PCS; principal; 2019-08-31 08:00)
DX: K80.50 Calculus of bile duct without cholangitis or cholecystitis without obstruction (principal)
CPT/HCPCS: 74330-TC; 88300-TC